=== PATIENT | male | born 1970 | race Caucasian/White ===

== ENCOUNTER 2019-11-01 19:39 | Emergency (ER) | payer OTHER ==
--- NOTE | 2019-11-01 20:44 | RAD REPORT ---
EXAM DESCRIPTION: Yris Single View11/01/2019 8:34 pm CLINICAL HISTORY: Cough COMPARISON: 2016 FINDINGS: The lungs appear clear of acute infiltrate. The heart is normal size IMPRESSION: No acute abnormalities displayed
[2019-11-01] MEDS ORDERED: AZITHROMYCIN 250 MG TAB ONE (21:21)
[2019-11-01] MEDS ORDERED: dexAMETHasone 10 MG/ML VIAL ONE (21:21)
[2019-11-01] MEDS ORDERED: ALBUTEROL 2.5 MG/3 ML NEB SOL ONE ×2 (21:24→22:46)
[2019-11-01] MEDS ORDERED: IPRATROPIUM BROM 0.5MG/2.5ML ONE (21:24)
--- NOTE | 2019-11-01 22:16 | ER ---
Nurse's Notes [facility] Name: Carlos Logan Age: 49 yrs Sex: Male : 1970 Arrival Date: 11/01/2019 Time: 19:48 Bed 23 Private MD: Romero Hernandez B Diagnosis: Acute suppurative otitis media;Acute bronchitis;Impacted cerumen, right ear Presentation: 10/31 19:50 Chief complaint: Patient states: Sinus problems since 2018. Allergies and sinus ca1 infections several times. 2 days ago, nasal congestion and drainage started. Denies fever. Reports cough, productive. Coronavirus screen: Patient reports a cough. Patient reports shortness of breath or difficulty breathing. Patient denies measured and/or subjective temperature greater than 100.4F prior to today's visit. Patient denies travel on a cruise ship or to a country the [facility] currently lists as an affected area. Patient denies contact with known and/or suspected case of COVID-19. Patient was placed back in the lobby due to no available rooms at this time. Patient was instructed to always wear their mask and to isolate themselves as much as possible from others in the lobby. Ebola Screen: Patient negative for fever greater than or equal to 101.5 degrees Fahrenheit, and additional compatible Ebola Virus Disease symptoms Patient denies exposure to infectious person. Patient denies travel to an Ebola-affected area in the 21 days before illness onset. No symptoms or risks identified at this time. Initial Sepsis Screen: Does the patient meet any 2 criteria? No. Patient's initial sepsis screen is negative. Does the patient have a suspected source of infection? No. Patient's initial sepsis screen is negative. Risk Assessment: Do you want to hurt yourself or someone else? Patient reports no desire to harm self or others. Onset of symptoms was November 01, 2019. 19:50 Method Of Arrival: Ambulatory ca1 19:50 Acuity: PAULY 4 ca1 Triage Assessment: 21:06 General: Appears in no apparent distress. uncomfortable. Pain: Denies pain. ks7 Historical: - Allergies: 19:56 No Known Allergies; ca1 - Home Meds: 19:56 Singulair 10 mg Oral tab 1 tab once daily [Active]; ca1 - PMHx: 19:56 Hypothyroidism; ca1 - PSHx: 19:56 None; ca1 - Immunization history:: Adult Immunizations up to date. - Social history:: Smoking status: Patient reports the use of cigarette tobacco products, smokes one pack cigarettes per day. Screenin:07 Abuse screen: Denies threats or abuse. Nutritional screening: No deficits noted. ks7 Tuberculosis screening: No symptoms or risk factors identified. Fall Risk None identified. Assessment: 21:07 General: Reports pt w/ hx of recurrent URI since Jan. comes in today c/o sinus ks7 congestion and bilateral ear ache x 2-3 days. pt also c/o sob, audible exp wheezes. Respiratory: Breath sounds with wheezes bilaterally. in right upper lobe, left upper lobe, right middle lobe, left lower lobe and right lower lobe. 21:50 Reassessment: Patient states symptoms have improved. pt states he feels like he can ks7 breathe a little better after duo neb tx. improvement in expiratory wheeze.. 22:39 Reassessment: Patient states feeling better. pt receiving 1 more albuterol tx then dc ks7 to home. Vital Signs: 19:50 BP 127 / 95; Pulse 105; Resp 18 S; Temp 97.2(TE); Pulse Ox 99% on R/A; Weight 98.43 kg ca1 (R); Height 6 ft. 0 in. (182.88 cm) (R); 21:06 BP 138 / 83; Pulse 89; Resp 18; Pulse Ox 95% on R/A; Pain 0/10; ks7 21:50 BP 118 / 81; Pulse 89; Resp 18; Pulse Ox 95% on R/A; Pain 0/10; ks7 22:32 BP 128 / 93; Pulse 87; Resp 18; Temp 97.9(O); Pulse Ox 95% on R/A; Pain 0/10; ks7 22:41 Pulse Ox 95% on R/A; Pain 0/10; ks7 22:41 Pulse Ox 95% on R/A; Pain 0/10; ks7 22:49 Pulse Ox 95% on R/A; Pain 0/10; ks7 19:50 Body Mass Index 29.43 (98.43 kg, 182.88 cm) ca1 ED Course: 19:48 Patient arrived in ED. do 19:48 Romero Hernandez MD is Private Physician. do 19:55 Triage completed. ca1 19:56 Arm band placed on right wrist. ca1 20:34 XRAY Chest (1 view) In Process Unspecified. EDMS 20:44 Lisa Sinha, ASHLEIGH is Primary Nurse. ks7 20:46 Sriram Wilson PA is PHCP. jr8 20:46 Dangelo Falk MD is Attending Physician. jr8 21:07 Patient has correct armband on for positive identification. Placed in gown. Bed in low ks7 position. Call light in reach. Side rails up X2. 21:07 No provider procedures requiring assistance completed. Patient did not have IV access ks7 during this emergency room visit. 21:39 No apparent distress. pt on 1x duoneb treatment. ks7 22:15 Romero Hernandez MD is Referral Physician. jr8 Administered Medications: 21:15 Drug: Zithromax 500 mg Route: PO; ks7 21:17 Drug: Decadron 10 mg Route: IM; Site: right deltoid; ks7 22:41 Follow up: Pulse Ox 95% RA; Pain 0/10 Adult ks7 21:25 Drug: DuoNeb (3:1) (2.5 mg - 0.5 mg) 3 ml Route: Nebulizer; ks7 22:41 Follow up: Pulse Ox 95% RA; Pain 0/10 Adult ks7 22:36 Drug: Albuterol 2.5 mg Route: Inhalation; ks7 22:49 Follow up: Pulse Ox 95% RA; Pain 0/10 Adult ks7 Outcome: 22:15 Discharge ordered by . jr8 22:39 Discharged to home ambulatory. ks7 22:39 Condition: stable 22:39 Discharge instructions given to patient, Instructed on discharge instructions, medication usage, Demonstrated understanding of instructions, medications, Prescriptions given X 3. 22:49 Patient left the ED. ks7 Signatures: Dispatcher [employer] EDMS Sriram Wilson PA PA jr8 Lisa Gray Cheryl, RN RN ca1 Lisa Sinha, ASHLEIGH RN ks7
--- NOTE | 2019-11-01 22:16 | EDPHYS ---
Physician Documentation [facility] Name: Carlos Logan Age: 49 yrs Sex: Male : 1970 Arrival Date: 11/01/2019 Time: 19:48 Bed 23 Private MD: Romero Hernandez B ED Physician Dangelo Falk HPI: 10/31 21:33 This 49 yrs old Male presents to ER via Ambulatory with complaints of Sinus jr8 Congestion. 21:33 The patient or guardian reports cough, that is intermittent, described as mild, sinus jr8 congestion, and wheezing . Onset: The symptoms/episode began/occurred gradually, 1 week(s) ago. Severity of symptoms: At their worst the symptoms were moderate, in the emergency department the symptoms are unchanged. Modifying factors: The symptoms are alleviated by nothing, the symptoms are aggravated by exertion. Associated signs and symptoms: The patient has no apparent associated signs or symptoms. The patient has experienced similar episodes in the past, a few times. The patient has not recently seen a physician. Stated that he has been getting bouts of sinus infections. This time has cough and wheezing . Historical: - Allergies: 19:56 No Known Allergies; ca1 - Home Meds: 19:56 Singulair 10 mg Oral tab 1 tab once daily [Active]; ca1 - PMHx: 19:56 Hypothyroidism; ca1 - PSHx: 19:56 None; ca1 - Immunization history:: Adult Immunizations up to date. - Social history:: Smoking status: Patient reports the use of cigarette tobacco products, smokes one pack cigarettes per day. ROS: 21:33 Eyes: Negative for injury, pain, redness, and discharge, Neck: Negative for injury, jr8 pain, and swelling, Cardiovascular: Negative for chest pain, palpitations, and edema, Abdomen/GI: Negative for abdominal pain, nausea, vomiting, diarrhea, and constipation, Back: Negative for injury and pain, MS/Extremity: Negative for injury and deformity, Skin: Negative for injury, rash, and discoloration. 21:33 ENT: Positive for nasal discharge, rhinorrhea, sinus congestion, sinus pain. 21:33 Respiratory: Positive for cough, shortness of breath, wheezing. 21:33 Neuro: Positive for headache. Exam: 21:33 Eyes: Pupils equal round and reactive to light, extra-ocular motions intact. Lids and jr8 lashes normal. Conjunctiva and sclera are non-icteric and not injected. Cornea within normal limits. Periorbital areas with no swelling, redness, or edema. ENT: Nares patent. No nasal discharge, no septal abnormalities noted. Tympanic membranes are normal and external auditory canals are clear. Oropharynx with no redness, swelling, or masses, exudates, or evidence of obstruction, uvula midline. Mucous membranes moist. Neck: Trachea midline, no thyromegaly or masses palpated, and no cervical lymphadenopathy. Supple, full range of motion without nuchal rigidity, or vertebral point tenderness. No Meningismus. Cardiovascular: Regular rate and rhythm with a normal S1 and S2. No gallops, murmurs, or rubs. Normal PMI, no JVD. No pulse deficits. Abdomen/GI: Soft, non-tender, with normal bowel sounds. No distension or tympany. No guarding or rebound. No evidence of tenderness throughout. Back: No spinal tenderness. No costovertebral tenderness. Full range of motion. Skin: Warm, dry with normal turgor. Normal color with no rashes, no lesions, and no evidence of cellulitis. MS/ Extremity: Pulses equal, no cyanosis. Neurovascular intact. Full, normal range of motion. Neuro: Awake and alert, GCS 15, oriented to person, place, time, and situation. Cranial nerves II-XII grossly intact. Motor strength 5/5 in all extremities. Sensory grossly intact. Cerebellar exam normal. Normal gait. 21:33 Head/face: Sinus tenderness, that is mild, is located over the right frontal sinus, left frontal sinus, right ethmoid sinus, left ethmoid sinus, right maxillary sinus and left maxillary sinus. 21:33 Respiratory: the patient does not display signs of respiratory distress, Respirations: normal, symetrical, no use of accessory muscles, no grunting, no evidence of nasal flaring, no prolonged exhalations, no pursed lip breathing, no retractions, no shallow respirations, no splinting, no tachypnea, Breath sounds: wheezing: expiratory that is moderate, is heard diffusely. Vital Signs: 19:50 BP 127 / 95; Pulse 105; Resp 18 S; Temp 97.2(TE); Pulse Ox 99% on R/A; Weight 98.43 kg ca1 (R); Height 6 ft. 0 in. (182.88 cm) (R); 21:06 BP 138 / 83; Pulse 89; Resp 18; Pulse Ox 95% on R/A; Pain 0/10; ks7 21:50 BP 118 / 81; Pulse 89; Resp 18; Pulse Ox 95% on R/A; Pain 0/10; ks7 22:32 BP 128 / 93; Pulse 87; Resp 18; Temp 97.9(O); Pulse Ox 95% on R/A; Pain 0/10; ks7 22:41 Pulse Ox 95% on R/A; Pain 0/10; ks7 22:41 Pulse Ox 95% on R/A; Pain 0/10; ks7 22:49 Pulse Ox 95% on R/A; Pain 0/10; ks7 19:50 Body Mass Index 29.43 (98.43 kg, 182.88 cm) ca1 MDM: 20:46 Patient medically screened. jr8 22:14 Data reviewed: vital signs, nurses notes, radiologic studies, plain films, and as a jr8 result, I will discharge patient. Data interpreted: Pulse oximetry: on room air is 95 %. Interpretation: normal. Counseling: I had a detailed discussion with the patient and/or guardian regarding: the historical points, exam findings, and any diagnostic results supporting the discharge/admit diagnosis, radiology results, the need for outpatient follow up, a family practitioner, to return to the emergency department if symptoms worsen or persist or if there are any questions or concerns that arise at home. Response to treatment: the patient's symptoms have markedly improved after treatment. 10/31 19:58 Order name: XRAY Chest (1 view); Complete Time: 20:46 ca1 Administered Medications: 21:15 Drug: Zithromax 500 mg Route: PO; ks7 21:17 Drug: Decadron 10 mg Route: IM; Site: right deltoid; ks7 22:41 Follow up: Pulse Ox 95% RA; Pain 0/10 Adult ks7 21:25 Drug: DuoNeb (3:1) (2.5 mg - 0.5 mg) 3 ml Route: Nebulizer; ks7 22:41 Follow up: Pulse Ox 95% RA; Pain 0/10 Adult ks7 22:36 Drug: Albuterol 2.5 mg Route: Inhalation; ks7 22:49 Follow up: Pulse Ox 95% RA; Pain 0/10 Adult ks7 Disposition: 11/01 06:12 Co-signature as Attending Physician, Dangelo Falk MD I agree with the assessment and madhu plan of care. Disposition: 11/01/19 22:15 Discharged to Home. Impression: Acute suppurative otitis media, Acute bronchitis, Impacted cerumen, right ear. - Condition is Stable. - Discharge Instructions: Acute Bronchitis, Adult, Earwax Buildup, Adult, Otitis Media, Adult. - Prescriptions for Medrol (Yoel) 4 mg Oral Tablets, Dose Pack - take 1 tablet by ORAL route as directed - follow package instructions; 1 packet. Albuterol Sulfate 90 mcg/actuation - inhale 1-2 puff by INHALATION route every 4-6 hours; 1 Inhaler. Zithromax 500 mg Oral Tablet - take 1 tablet by ORAL route once daily for 5 days; 5 tablet. - Medication Reconciliation Form, Thank You Letter, Antibiotic Education, Prescription Opioid Use form. - Follow up: Romero Hernandez MD; When: 5 - 6 days; Reason: Recheck today's complaints, Continuance of care, Re-evaluation by your physician. - Problem is new. - Symptoms have improved. Signatures: Dispatcher [employer] EDDangelo Acuña MD MD cha Roszak, Josh, PA PA jr8 Nicole Sandoval RN RN ca1 Songcuan, Kathleen, RN RN ks7 Corrections: (The following items were deleted from the chart) 10/31 22:16 22:15 11/01/2019 22:15 Discharged to Home. Impression: Acute suppurative otitis media; jr8 Acute bronchitis. Condition is Stable. Forms are Medication Reconciliation Form, Thank You Letter, Antibiotic Education, Prescription Opioid Use. Follow up: Romero Hernandez; When: 5 - 6 days; Reason: Recheck today's complaints, Continuance of care, Re-evaluation by your physician. Problem is new. Symptoms have improved. jr8 22:49 22:16 11/01/2019 22:15 Discharged to Home. Impression: Acute suppurative otitis media; ks7 Acute bronchitis; Impacted cerumen, right ear. Condition is Stable. Forms are Medication Reconciliation Form, Thank You Letter, Antibiotic Education, Prescription Opioid Use. Follow up: Romero Hernandez; When: 5 - 6 days; Reason: Recheck today's complaints, Continuance of care, Re-evaluation by your physician. Problem is new. Symptoms have improved. jr8
[2019-11-01 23:41] VITALS: O2SAT 95
[2019-11-01 23:43] VITALS: BP 128/93; TEMP 97.9
== END 2019-11-01 22:49 | disposition home or self-care (01) ==
LOC: ER 19:39
DX: J20.9 Acute bronchitis, unspecified (principal); H66.001 Acute suppurative otitis media without spontaneous rupture of ear drum, right ear; H61.21 Impacted cerumen, right ear; F17.210 Nicotine dependence, cigarettes, uncomplicated; E03.9 Hypothyroidism, unspecified
CPT/HCPCS: 71045; 96372; 99284; J1100

== ENCOUNTER 2020-07-02 19:12 | Observation (INO) | payer OTHER ==
--- OUTSIDE RECORDS SUMMARY | 2020-07-02 19:14 | XMS REPORT | Continuity of Care Document ---
:1970 Author Organization [facility] t Address [address] [place] [address] Care Team Providers Name Role Phone Lab, Fam Pob I Attending Clinician Unavailable Doctor Unassigned, Name Attending Clinician Unavailable Problems This patient has no known problems. Allergies, Adverse Reactions, Alerts This patient has no known allergies or adverse reactions. Medications This patient has no known medications. Procedures This patient has no known procedures. Encounters Start End Encounter Admission Attending Care Care Encounter Source Date/Time Date/Time Type Type Clinicians Facility Department ID 2020-04-24 2020-04-24 Laboratory Lab, [facility] [id number] 09:17:47 09:37:47 Only Fam Pob I Health [id number] [facility] [id number] Jus [id number] [address] 2020-04-24 2020-04-24 Letter Doctor GREGORIA [id number] 00:00:00 00:00:00 (Out) UnassignedJANE [id number] [facility] [id number] Results This patient has no known results.
[2020-07-02 20:07] LABS: Basophils % 1.4 % (0-1.3); Hematocrit 40.9 % (39.6-49.0); Lymphocytes % 23.5 % (15.3-44.8); MPV 9.2 fL (7.6-11.3); RBC Red Blood Cell Count 4.36 M/uL (4.33-5.43)
[2020-07-02 20:17] LABS: Protime INR 0.98
[2020-07-02] MEDS ORDERED: ASPIRIN 81 MG CHEWABLE TABLET ONE (20:48)
[2020-07-02] MEDS ORDERED: ONDANSETRON 4 MG/2 ML VIAL ONE (20:49)
[2020-07-02] MEDS ORDERED: FAMOTIDINE 20 MG/2 ML VIAL IV ONE (20:49)
[2020-07-02 21:12] LABS: ALT/SGPT 32 U/L (12-78); AST/SGOT 18 U/L (15-37); Alkaline Phosphatase ND U/L (45-117); BUN Blood Urea Nitrogen 14 mg/dL (7-18); Bicarbonate 27 mmol/L (21-32); Bilirubin Direct < 0.1 mg/dL (0-0.2); Bilirubin Total 0.2 mg/dL (0.2-1.0); Glucose Level 126 mg/dL (74-106); Lipase 130 U/L (73-393); Magnesium 2.3 mg/dL (1.8-2.4); NT PRO-BNP 26 pg/mL (<125); Potassium 3.6 mmol/L (3.5-5.1); Protein, Total 8.1 g/dL (6.4-8.2); Sodium Level 142 mmol/L (136-145); Troponin (Emerg Dept Use Only) < 0.02 ng/mL (0.0-0.045)
--- NOTE | 2020-07-02 21:29 | RAD REPORT ---
EXAM DESCRIPTION: RAD - Chest Single View - 07/02/2020 8:45 pm CLINICAL HISTORY: CHEST PAIN COMPARISON: Portable October 2019 TECHNIQUE: AP portable chest image was obtained 07/02/2020 8:45 pm . FINDINGS: Lungs are clear. Interstitial pattern matches comparison. Heart and vasculature are normal . No measurable pleural effusion and no pneumothorax. No acute bony abnormality seen. No acute aortic findings suspected. IMPRESSION: No acute cardiopulmonary process. No significant change from comparison study.
[2020-07-02] MEDS ORDERED: NA CHLORIDE 0.9% 1,000 ML ONE (22:28)
[2020-07-02] MEDS ORDERED: NITROGLYCERIN 0.4 MG/TAB SL ONE (22:30)
--- NOTE | 2020-07-02 22:38 | ER ---
Nurse's Notes [facility] Name: Carlos Logan Age: 49 yrs Sex: Male : 1970 Arrival Date: 07/02/2020 Time: 19:14 Bed 20 Private MD: Diagnosis: Chest pain, unspecified Presentation: 07/02 19:23 Chief complaint: Patient states: Abdominal pain with some nausea for 1 week. No fever. ll1 Chest pressure off/on for 3 days, worse today. + SOB and dizziness. Coronavirus screen: Client denies travel out of the [place] in the last 14 days. congestion, fatigue, headache, nausea, runny nose, shaking with chills, Client presents with at least one sign or symptom that may indicate coronavirus-19. Standard/surgical mask placed on the client. Ebola Screen: Patient denies travel to an Ebola-affected area in the 21 days before illness onset. Initial Sepsis Screen: Does the patient meet any 2 criteria? HR > 90 bpm. No. Patient's initial sepsis screen is negative. Does the patient have a suspected source of infection? Yes: Acute abdominal pain. Risk Assessment: Do you want to hurt yourself or someone else? Patient reports no desire to harm self or others. Onset of symptoms was June 25, 2020. 19:23 Method Of Arrival: Ambulatory ll1 19:23 Acuity: PAULY 3 ll1 Historical: - Allergies: 19:27 No Known Allergies; ll1 - PMHx: 19:27 Hypothyroidism; ll1 - PSHx: 19:27 None; ll1 - Immunization history:: Flu vaccine is not up to date. - Social history:: Smoking status: Patient reports the use of cigarette tobacco products, smokes one pack cigarettes per day. Screenin:14 Abuse screen: Denies threats or abuse. Denies injuries from another. Nutritional mg2 screening: No deficits noted. Tuberculosis screening: No symptoms or risk factors identified. Fall Risk IV access (20 points). Assessment: 21:00 General: Appears in no apparent distress. comfortable, Behavior is calm, cooperative. mg2 Pain: Complains of pain in chest and abdomen. Neuro: Level of Consciousness is awake, alert, obeys commands, Oriented to person, place, time, situation. Cardiovascular: Capillary refill < 3 seconds Patient's skin is warm and dry. Respiratory: Airway is patent Respiratory effort is even, unlabored, Respiratory pattern is regular, symmetrical. GI: Bowel sounds present X 4 quads. Abd is soft and non tender Reports lower abdominal pain, upper abdominal pain. : No signs and/or symptoms were reported regarding the genitourinary system. EENT: No signs and/or symptoms were reported regarding the EENT system. Derm: Skin is intact, is healthy with good turgor, Skin is pink, warm \T\ dry. normal. Musculoskeletal: Circulation, motion, and sensation intact. Capillary refill < 3 seconds. 22:08 Reassessment: Patient appears in no apparent distress at this time. Patient and/or mg2 family updated on plan of care and expected duration. Pain level reassessed. Patient is alert, oriented x 3, equal unlabored respirations, skin warm/dry/pink. 23:08 Reassessment: Patient appears in no apparent distress at this time. Patient and/or mg2 family updated on plan of care and expected duration. Pain level reassessed. Patient is alert, oriented x 3, equal unlabored respirations, skin warm/dry/pink. 07/03 00:40 Reassessment: Patient appears in no apparent distress at this time. Patient and/or mg2 family updated on plan of care and expected duration. Pain level reassessed. Patient is alert, oriented x 3, equal unlabored respirations, skin warm/dry/pink. Vital Signs: 07/02 19:23 BP 141 / 89; Pulse 111; Resp 17; Temp 98.5; Pulse Ox 99% ; Weight 99.79 kg; Height 6 ll1 ft. 0 in. (182.88 cm); Pain 3/10; 22:07 BP 142 / 92; Pulse 92; Resp 17; Pulse Ox 98% on R/A; mg2 23:07 BP 117 / 79; Pulse 92; Resp 18; Pulse Ox 97% on R/A; mg2 07/03 00:40 BP 123 / 93; Pulse 83; Resp 18; Temp 98.4(TE); Pulse Ox 98% on R/A; mg2 07/02 19:23 Body Mass Index 29.84 (99.79 kg, 182.88 cm) ll1 ED Course: 07/02 19:14 Patient arrived in ED. cl3 19:25 Triage completed. ll1 19:27 Arm band placed on. ll1 19:38 Markwardt, Monet, RN is Primary Nurse. dm5 19:56 Dangelo Martines PA is PHCP. cp 19:56 Dangelo Falk MD is Attending Physician. cp 19:57 Basic Metabolic Panel Sent. dm5 20:29 Lipase Sent. dm5 20:45 XRAY Chest (1 view) In Process Unspecified. EDMS 21:14 Patient has correct armband on for positive identification. mg2 21:14 No provider procedures requiring assistance completed. mg2 22:37 Merlin Mckinney MD is Hospitalizing Provider. cp Administered Medications: 20:33 Drug: Zofran (Ondansetron) 4 mg Route: IVP; Site: right antecubital; dm5 21:12 Follow up: Response: No adverse reaction mg2 20:33 Drug: Aspirin Chewable Tablet 324 mg Route: PO; dm5 21:12 Follow up: Response: No adverse reaction mg2 20:35 Drug: Pepcid 20 mg Route: IVP; Site: right antecubital; dm5 21:12 Follow up: Response: No adverse reaction mg2 22:17 Drug: NS 0.9% 1000 ml Route: IV; Rate: 1 bolus; Site: right antecubital; mg2 0318 00:40 Follow up: Response: No adverse reaction; IV Status: Completed infusion; IV Intake: mg2 1000ml 03 22:19 Drug: Nitroglycerin 0.4 mg Route: Sublingual; mg2 22:52 Follow up: Response: No adverse reaction mg2 22:52 Drug: Nicoderm CQ 21 mg/24 hr 1 patches {Note: shoulder.} Route: Transdermal; Site: mg2 affected area; 07/03 00:41 Follow up: Response: No adverse reaction mg2 07/02 23:27 Not Given (Physician Discretion): Metoprolol TARTRATE (Lopressor) 50 mg PO once mg2 Intake: 07/03 00:40 IV: 1000ml; Total: 1000ml. mg2 Outcome: 07/02 22:37 Decision to Hospitalize by Provider. cp 07/03 00:51 Patient left the ED. mg2 Signatures: Dispatcher [employer] EDMS Monet Palma, ASHLEIGH RN dm5 Dangelo Martines PA PA cp Henry Pike RN RN mg2 Ijeoma Capps cl3 Marlon Capps RN RN ll1
--- NOTE | 2020-07-02 22:38 | EDPHYS ---
Physician Documentation [facility] Name: Carlos Logan Age: 49 yrs Sex: Male : 1970 Arrival Date: 07/02/2020 Time: 19:14 Bed 20 Private MD: DANIELLE Physician Dangelo Falk HPI: 07/02 19:45 This 49 yrs old Male presents to ER via Ambulatory with complaints of cp Abdominal Pain, Chest Tightness. 19:45 The patient or guardian reports chest pain that is located primarily in the substernal cp area. 19:45 Onset: 3 day(s) ago. cp 19:45 The patient presents with abdominal pain in the upper abdomen. The pain does not cp radiate. Associated signs and symptoms: Pertinent positives: nausea, Pertinent negatives: diarrhea, palpitations, vomiting. The chest pain is described as tightness. Historical: - Allergies: 19:27 No Known Allergies; ll1 - PMHx: 19:27 Hypothyroidism; ll1 - PSHx: 19:27 None; ll1 - Immunization history:: Flu vaccine is not up to date. - Social history:: Smoking status: Patient reports the use of cigarette tobacco products, smokes one pack cigarettes per day. ROS: 19:50 Constitutional: Negative for body aches, chills, fever, poor PO intake. cp 19:50 Eyes: Negative for injury, pain, redness, and discharge. cp 19:50 Cardiovascular: Positive for chest pain, palpitations, Negative for edema. 19:50 Respiratory: Negative for cough, shortness of breath, wheezing. 19:50 Abdomen/GI: Positive for abdominal pain, Negative for nausea, vomiting, and diarrhea, black/tarry stool, rectal bleeding. 19:50 Back: Negative for radiated pain. 19:50 : Negative for urinary symptoms. cp 19:50 Neuro: Negative for altered mental status, dizziness, headache, syncope, weakness. cp 19:50 All other systems are negative. Exam: 19:55 Constitutional: The patient appears in no acute distress, alert, awake, cp non-diaphoretic, non-toxic, well developed, well nourished. 19:55 Head/Face: Normocephalic, atraumatic. cp 19:55 Eyes: Periorbital structures: appear normal, Conjunctiva: normal, no exudate, no injection, Sclera: no appreciated abnormality, Lids and lashes: appear normal, bilaterally. 19:55 ENT: External ear(s): are unremarkable, Nose: is normal, Mouth: Lips: moist, Oral mucosa: moist, Posterior pharynx: is normal, airway is patent. 19:55 Neck: ROM/movement: is normal, is supple, without pain, no range of motions limitations. 19:55 Chest/axilla: Inspection: normal, Palpation: is normal, no crepitus, no tenderness. 19:55 Cardiovascular: Rate: tachycardic, Rhythm: regular, Heart sounds: murmur, not appreciated, Edema: is not appreciated, JVD: is not appreciated. 19:55 Respiratory: the patient does not display signs of respiratory distress, Respirations: normal, no use of accessory muscles, no retractions, labored breathing, is not present, Breath sounds: are clear throughout, no decreased breath sounds, no stridor, no wheezing. 19:55 Abdomen/GI: Inspection: abdomen appears normal, Bowel sounds: active, all quadrants, Palpation: abdomen is soft and non-tender, in all quadrants. 19:55 Back: ROM is normal. 19:55 Neuro: Orientation: to person, place \T\ time. Mentation: is normal, Cerebellar function: is grossly normal, Motor: moves all fours, strength is normal, Sensation: is normal. Vital Signs: 19:23 BP 141 / 89; Pulse 111; Resp 17; Temp 98.5; Pulse Ox 99% ; Weight 99.79 kg; Height 6 ll1 ft. 0 in. (182.88 cm); Pain 3/10; 22:07 BP 142 / 92; Pulse 92; Resp 17; Pulse Ox 98% on R/A; mg2 23:07 BP 117 / 79; Pulse 92; Resp 18; Pulse Ox 97% on R/A; mg2 07/03 00:40 BP 123 / 93; Pulse 83; Resp 18; Temp 98.4(TE); Pulse Ox 98% on R/A; mg2 07/02 19:23 Body Mass Index 29.84 (99.79 kg, 182.88 cm) ll1 MDM: 07/02 20:12 Patient medically screened. cp 22:00 Data reviewed: vital signs, nurses notes, lab test result(s), radiologic studies, plain cp films. 22:00 The patient was given aspirin in the Emergency Department. Test interpretation: by ED cp physician or midlevel provider: plain radiologic studies. 07/02 19:39 Order name: Basic Metabolic Panel [facility] 07/02 19:39 Order name: CBC with Diff; Complete Time: 21:50 dm5 07/02 21:50 Interpretation: Normal except: BASO% 1.4. cp 07/02 19:39 Order name: LFT's; Complete Time: 21:50 5 07/02 19:39 Order name: Magnesium; Complete Time: 21:50 dm5 07/02 19:39 Order name: NT PRO-BNP; Complete Time: 21:50 dm5 07/02 19:39 Order name: PT-INR [facility] 07/02 19:39 Order name: Troponin (emerg Dept Use Only); Complete Time: 21:50 dm5 07/02 19:39 Order name: Basic Metabolic Panel; Complete Time: 21:50 EDMS 07/02 20:11 Order name: Lipase cp 07/02 20:18 Order name: Lipase; Complete Time: 21:50 EDMS 07/02 22:34 Order name: DD la1 07/02 19:39 Order name: XRAY Chest (1 view); Complete Time: 21:50 dm5 07/02 19:39 Order name: EKG; Complete Time: 19:40 dm5 07/02 19:39 Order name: Cardiac monitoring; Complete Time: 19:59 dm5 07/02 19:39 Order name: EKG - Nurse/Tech; Complete Time: 19:59 dm5 07/02 19:39 Order name: IV Saline Lock; Complete Time: 19:59 dm5 07/02 19:39 Order name: Labs collected and sent; Complete Time: 19:59 dm5 07/02 19:39 Order name: O2 Per Protocol; Complete Time: 19:57 dm5 07/02 22:42 Order name: D-Dimer; Complete Time: 23:33 EDMS 07/03 00:16 Order name: SARS-COV-2 RT PCR [facility] 07/02 19:39 Order name: O2 Sat Monitoring; Complete Time: 19:57 dm5 Administered Medications: 20:33 Drug: Zofran (Ondansetron) 4 mg Route: IVP; Site: right antecubital; dm5 21:12 Follow up: Response: No adverse reaction mg2 20:33 Drug: Aspirin Chewable Tablet 324 mg Route: PO; dm5 21:12 Follow up: Response: No adverse reaction mg2 20:35 Drug: Pepcid 20 mg Route: IVP; Site: right antecubital; dm5 21:12 Follow up: Response: No adverse reaction mg2 22:17 Drug: NS 0.9% 1000 ml Route: IV; Rate: 1 bolus; Site: right antecubital; mg2 07/03 00:40 Follow up: Response: No adverse reaction; IV Status: Completed infusion; IV Intake: mg2 1000ml 07/02 22:19 Drug: Nitroglycerin 0.4 mg Route: Sublingual; mg2 22:52 Follow up: Response: No adverse reaction mg2 22:52 Drug: Nicoderm CQ 21 mg/24 hr 1 patches {Note: shoulder.} Route: Transdermal; Site: mg2 affected area; 07/03 00:41 Follow up: Response: No adverse reaction mg2 07/02 23:27 Not Given (Physician Discretion): Metoprolol TARTRATE (Lopressor) 50 mg PO once mg2 Disposition: 07/03 06:50 Co-signature as Attending Physician, Dangelo Falk MD I agree with the assessment and madhu plan of care. Disposition: 07/02/20 22:37 Hospitalization ordered by Merlin Mckinney for Observation. Preliminary diagnosis is Chest pain, unspecified. - Bed requested for Telemetry/MedSurg (observation). - Status is Observation. mg2 - Condition is Stable. - Problem is new. - Symptoms have improved. Signatures: Dispatcher [employer] [facility] Monet Palma, RN RN dm5 Dangelo Falk MD MD cha Attema, Lee, READING SPECIALIST-C READING SPECIALIST-Cla1 Dangelo Martines PA PA cp [place]ose, Michele, RN RN mg2 Marlon Capps RN RN ll1 Corrections: (The following items were deleted from the chart) 07/02 20:18 20:12 Lipase ordered. ED[facility] EDMS 22:42 22:35 D-Dimer ordered. [facility] EDMS 22:46 22:19 CORONAVIRUS+MR.LAB.BRZ ordered. [facility] EDMS 07/03 00:31 07/02 22:37 Hospitalization Ordered by Merlin Mckinney MD for Observation. Preliminary dm5 diagnosis is Chest pain, unspecified. Bed requested for Telemetry/MedSurg (observation). Status is Observation. Condition is Stable. Problem is new. Symptoms have improved. cp 07/03 00:51 00:31 07/02/2020 22:37 Hospitalization Ordered by Merlin Mckinney MD for Observation. mg2 Preliminary diagnosis is Chest pain, unspecified. Bed requested for Telemetry/MedSurg (observation). Status is Observation. Condition is Stable. Problem is new. Symptoms have improved. dm5
[2020-07-02] MEDS ORDERED: NICOTINE 21 MG/PAT TD ONE (23:11)
--- NOTE | 2020-07-02 23:37 | P.HP ---
Certification for Inpatient Patient admitted to: Observation With expected LOS: <2 Midnights Patient will require the following post-hospital care: None Practitioner: I am a practitioner with admitting privileges, knowledge of patient current condition, hospital course, and medical plan of care. Services: Services provided to patient in accordance with Admission requirements found in Title 42 Section 412.3 of the Code of Federal Regulations <Lorenzo Garcia - Last Filed: 07/02/20 23:35> Patient History Date of Service: 07/02/20 Primary Care Provider: Dr. Hernandez Reason for admission: Chest pain History of Present Illness: 49-year-old male with history of hypothyroidism presents emergency department for chest pain. Patient reports he has had intermittent chest tightness over the course of the last 3 days worse today associated with some dizziness and shortness of breath. Pain a case a radiates to left shoulder, neck and has tingling in the right arm. Patient also reports some anxiety related to the pain. Workup in the emergency department unremarkable, chest x- ray unremarkable. Initial troponin negative D-dimer negative EKG without acute changes. Patient with family history of heart disease, smokes heavily, ED provider wishes to admit patient for chest pain rule out. 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 - Family History Father -: Heart disease - Social History Smoking Status: Current every day smoker Counseled patient to stop smoking for: less than 10 minutes Smoking therapy provided: Yes Alcohol use: No CD- Drugs: No Caffeine use: Yes Place of Residence: Home <Lorenzo Garcia - Last Filed: 07/02/20 23:35> Date of Service: 07/03/20 <Merlin Mckinney - Last Filed: 07/03/20 14:49> Review of Systems 10-point ROS is otherwise unremarkable Respiratory: Shortness of Breath, SOB with Excertion Cardiovascular: Chest Pain, Light Headedness, As per HPI <Lorenzo Garcia - Last Filed: 07/02/20 23:35> Physical Examination - Physical Exam General: Alert, In no apparent distress HEENT: Atraumatic, PERRLA, Mucous membr. moist/pink Neck: Supple, 2+ carotid pulse no bruit, No LAD Respiratory: Clear to auscultation bilaterally, Normal air movement Cardiovascular: Regular rate/rhythm, Normal S1 S2 Gastrointestinal: Normal bowel sounds, No tenderness Musculoskeletal: No tenderness Integumentary: No rashes Neurological: Normal speech, Normal strength at 5/5 x4 extr, Normal tone, Normal affect - Studies Laboratory Data (last 24 hrs) 07/02/20 20:11: Lipase Cancelled 07/02/20 19:50: PT 11.3, INR 0.98 07/02/20 19:50: WBC 8.60, Hgb 14.2, Hct 40.9, Plt Count 216 07/02/20 19:50: Sodium 142, Potassium 3.6, BUN 14, Creatinine 1.14, Glucose 126 H, Magnesium 2.3, Total Bilirubin 0.2, AST 18, ALT 32, Alkaline Phosphatase ND, Lipase 130 <Lorenzo Garcia - Last Filed: 07/02/20 23:35> - Studies Laboratory Data (last 24 hrs) 07/02/20 20:11: Lipase Cancelled 07/02/20 19:50: PT 11.3, INR 0.98 07/02/20 19:50: WBC 8.60, Hgb 14.2, Hct 40.9, Plt Count 216 07/02/20 19:50: Sodium 142, Potassium 3.6, BUN 14, Creatinine 1.14, Glucose 126 H, Magnesium 2.3, Total Bilirubin 0.2, AST 18, ALT 32, Alkaline Phosphatase ND, Lipase 130 <Merlin Mckinney - Last Filed: 07/03/20 14:49> Assessment and Plan - Plan Assessment Chest pain rule out ACS Hypothyroidism Tobacco abuse Plan Chest pain rule out ACS: Trend troponins, monitor on telemetry, cardiology consult. Continue daily aspirin, statin, beta-gisela therapy. DVT prophylaxis Lovenox 40 mg subcutaneous once daily. Discussed need for tobacco cessation with patient. Appreciate further input from cardiology. Hypothyroidism: Continue home medication, check thyroid panel with morning labs. Tobacco abuse: Discussed need for tobacco cessation, provide patient with nicotine patch during this admission. Discharge Plan: Home Plan to discharge in: 24 Hours - Advance Directives Does patient have a Living Will: No Does patient have a Durable POA for Healthcare: No - Code Status/Comfort Care Code Status Assessed: Yes (Full code) Critical Care: No Time Spent Managing Pts Care (In Minutes): 55 <Lorenzo Garcia - Last Filed: 07/02/20 23:35> - Plan plan of care reviewed as noted above by Lorenzo Garcia chest pain, r/o ACS given risk factors, trend trop. cardio consulted possibly due to GERD / gastritis <Merlin Mckinney - Last Filed: 07/03/20 14:49>
[2020-07-03] MEDS ORDERED: ACETAMINOPHEN 500 MG TAB PO PRN (01:10)
[2020-07-03] MEDS ORDERED: ONDANSETRON 4 MG/2 ML VIAL IV PRN (01:10)
[2020-07-03] MEDS ORDERED: MORPHINE 2 MG/ML SYR IV PRN (01:10)
[2020-07-03 01:29] VITALS: BMI 29.2
[2020-07-03] MEDS ORDERED: METOPROLOL TAR 25 MG TAB PO SCH (06:00)
[2020-07-03] MEDS ORDERED: LEVOTHYROXINE SOD 0.125 MG TAB PO SCH (06:30)
[2020-07-03 07:58] LABS: Absolute Lymphocytes (CBC) 2.3 K/uL (0.7-4.9); Basophils % 1.3 % (0-1.3); Hematocrit 39.2 % (39.6-49.0); Lymphocytes % 32.8 % (15.3-44.8); MPV 9.4 fL (7.6-11.3); RBC Red Blood Cell Count 4.08 M/uL (4.33-5.43)
[2020-07-03 08:04] LABS: BUN Blood Urea Nitrogen 14 mg/dL (7-18); Bicarbonate 29 mmol/L (21-32); Glucose Level 83 mg/dL (74-106); HDL Cholesterol 27 mg/dL (40-60); LDL Cholesterol, Calculated 104 (<130); Magnesium 2.3 mg/dL (1.8-2.4); Potassium 4.1 mmol/L (3.5-5.1); Sodium Level 144 mmol/L (136-145); Troponin I < 0.02 ng/mL (0.0-0.045)
[2020-07-03] MEDS ORDERED: ENOXAPARIN 40 MG/0.4 ML SQ SCH (09:00)
[2020-07-03] MEDS ORDERED: ASPIRIN EC 81 MG TAB PO SCH (09:00)
[2020-07-03] MEDS ORDERED: PANTOPRAZOLE 40MG TABLET PO ONE (10:15)
[2020-07-03] MEDS ORDERED: SUCRALFATE 1 GM TABLET PO SCH (11:30)
[2020-07-03 11:57] VITALS: O2SAT 97
[2020-07-03 13:09] VITALS: BP 120/75; TEMP 97.4
--- NOTE | 2020-07-03 18:27 | CON ---
Date of Consultation: 07/03/2020 Reason For Consultation: Chest pain. History Of Present Illness: This is a 49-year-old male with history of hypothyroidism, active smoker , 1-1/2 pack per day, presented with chest tightness and shortness of breath with exertion, radiates to the neck and shoulder and right arm. Pain has completely resolved. Does not have any further com plaints today. Wants to go home. His troponins have been negative. Past Medical History: As outlined above in HPI. Medications: Refer to reconciliation sheet for detailed list. Allergies: NO KNOWN DRUG ALLERGIES. Social History: Heavy smoker. Does not drink or use any drugs. Review of Systems: All systems reviewed and they were negative except what mentioned in the HPI. Physical Examination: Vital Signs: Temperature is 97.4, pulse 81, breathing at 16, blood pressure 120/75, saturating 97%. General: Pleasant middle-aged male, in no apparent distress. Head and Neck: Pupils are equal, reactive to light. Intact eye movements. No JVD. No cervical lym phadenopathy. Neck: Supple. Thyroid is not enlarged. Lungs: Clear to auscultation bilaterally. No rhonchi, rales, or crackles. No accessory muscle use. Heart: Regular rate and rhythm. No extra sounds. Abdomen: Soft, nontender. Bowel sounds positive. No organomegaly. No masses or hernia. No rigidi ty or rebound. Extremities: No edema, clubbing, or cyanosis. Intact pulses. Skin: No rash noted. Neurologic: Alert, awake, oriented x3. No acute focal deficits appreciated. Investigations: Troponins x3 are negative. Creatinine 1.07. Hemoglobin is 12.9. Assessment And Recommendations: 1.Chest pain. It is exertional and found to have some typical features. Cardiac enzymes are negati ve and the patient has been chest pain-free since he came to the floor and he wants to go home. At t his point, he can be released and have him follow up very soon in the office for an exercise stress t est and then an echocardiogram. If the patient agrees to stay until tomorrow, recommend to do a stre ss test before discharge. 2.Tobacco disorder. The patient was counseled against smoking in details. SR/MODL Voice ID: [id number] Report ID: [id number]
--- NOTE | 2020-07-03 20:01 | P.DS ---
Admission Date: 07/02/20 Discharge Date: 07/03/20 Primary Care Provider: Dr. Hernandez Disposition: ROUTINE DISCHARGE Discharge Condition: GOOD Reason for Admission: Chest pain Consultations: Cardiology - Dr. Mcnally Procedures: CXR: No acute cardiopulmonary process. Interstitial pattern matches comparison. No significant change from comparison study. Problem List: Chest pain rule out ACS Hypothyroidism Tobacco abuse Brief History of Present Illness: 49yo M, PMH: Hypothyroidism, presents to ED with chest pain. Intermittent chest tightness over the course of the last 3 days worse today associated with some dizziness and shortness of breath. Pain radiates to left shoulder, neck and has tingling in the right arm. Patient also reports some anxiety related to the pain. Workup in the emergency department unremarkable, chest x-ray unremarkable. Initial troponin negative, D-dimer negative, and EKG without acute changes. Patient with family history of heart disease, smokes heavily, ED provider wishes to admit patient for chest pain rule out. Hospital Course: Patient had resolution of his chest pain and troponins remained negative x 3. Cardiology was consulted and recommended stress testing. Patient felt better, had some improvement with protonix, and wanted to be discharged home. He will follow up with Cardiology for outpatient stress testing. He was discharged home with protonix to treat possible gastritis / GERD. He was advised to follow up with his PCP as well. Vital Signs/Physical Exam: Physical Exam General: Alert, In no apparent distress HEENT: Atraumatic, PERRLA Neck: Supple, 2+ carotid pulse no bruit Respiratory: Clear to auscultation bilaterally, Normal air movement Cardiovascular: Regular rate/rhythm, Normal S1 S2 Gastrointestinal: Normal bowel sounds, No tenderness Musculoskeletal: No tenderness Integumentary: No rashes Neurological: Normal speech, Normal strength at 5/5 x4 extr, Normal tone, Normal affect Temp Pulse Resp BP Pulse Ox 97.4 F 81 16 120/75 97 07/03/20 12:00 07/03/20 12:00 07/03/20 12:00 07/03/20 12:00 07/03/20 12:00 Laboratory Data at Discharge: WBC 7.10 K/uL (4.3-10.9) D 07/03/20 07:06 Hgb 12.9 g/dL (13.6-17.9) L 07/03/20 07:06 Hct 39.2 % (39.6-49.0) L 07/03/20 07:06 Plt Count 207 K/uL (152-406) 07/03/20 07:06 PT 11.3 SECONDS (9.5-12.5) 07/02/20 19:50 INR 0.98 07/02/20 19:50 Sodium 144 mmol/L (136-145) 07/03/20 07:06 Potassium 4.1 mmol/L (3.5-5.1) 07/03/20 07:06 BUN 14 mg/dL (7-18) 07/03/20 07:06 Creatinine 1.07 mg/dL (0.55-1.3) 07/03/20 07:06 Glucose 83 mg/dL (74-106) 07/03/20 07:06 Magnesium 2.3 mg/dL (1.8-2.4) 07/03/20 07:06 Total Bilirubin 0.2 mg/dL (0.2-1.0) 07/02/20 19:50 AST 18 U/L (15-37) 07/02/20 19:50 ALT 32 U/L (12-78) 07/02/20 19:50 Alkaline Phosphatase ND 07/02/20 19:50 Troponin I < 0.02 ng/mL (0.0-0.045) 07/03/20 11:43 Triglycerides 103 mg/dL (<150) 07/03/20 07:06 Cholesterol 152 mg/dL (<200) 07/03/20 07:06 HDL Cholesterol 27 mg/dL (40-60) L 07/03/20 07:06 Cholesterol/HDL Ratio 5.63 07/03/20 07:06 Lipase Cancelled 07/02/20 20:11 Home Medications: Aspirin [Aspirin EC 81 MG] 81 mg PO DAILY 30 Days #30 tablet. 07/03/20 Levocetirizine Dihydrochloride [Xyzal] 5 mg PO BEDTIME 07/03/20 Levothyroxine Sodium [Synthroid] 150 mcg PO DAILY 07/03/20 Montelukast [Singulair*] 10 mg PO BEDTIME 07/03/20 Pantoprazole [Protonix Tab*] 40 mg PO DAILY 30 Days #30 tab 07/03/20 New Medications: Aspirin [Aspirin EC 81 MG] 81 mg PO DAILY 30 Days #30 tablet. Pantoprazole [Protonix Tab*] 40 mg PO DAILY 30 Days #30 tab Physician Discharge Instructions: Your EKG and cardiac enzyme (troponins) were normal - did not show any signs of heart damage. Your chest pain may be due to some blockage in your heart, or possibly from some acid reflux / inflammation of your stomach lining. You are discharged with a prescription for pantoprazole (daily antacid). Follow up with Dr. Mcnally in the next week to schedule outpatient stress test to further evaluate your heart. Recommend following up with your PCP regarding your acid reflux. Diet: AHA Activity: Ad nicole Followup: Yuri Mcnally MD [ACTIVE - CAN ADMIT] - 1-2 Weeks (Call for appointment) Romero Hernandez MD [Primary Care Provider] - 1-2 Weeks (Call for appointment) Time spent managing pt's care (in minutes): 40
[2020-07-03] MEDS ORDERED: LORATADINE 10 MG TAB PO SCH (21:00)
[2020-07-03] MEDS ORDERED: ATORVASTATIN 40 MG TAB PO SCH (21:00)
[2020-07-03] MEDS ORDERED: NICOTINE 21 MG/PAT TD SCH (21:00)
[2020-07-03] MEDS ORDERED: MONTELUKAST 10 MG TAB PO SCH (21:00)
== END 2020-07-03 16:30 | disposition home or self-care (01) ==
LOC: ER 19:12 → ERHOLD 23:04 → 4TH 07-03 00:49
PROVIDERS: ADMIT Hospitalist; ATTEND Hospitalist
DX: R07.9 Chest pain, unspecified (principal); E03.9 Hypothyroidism, unspecified; Z82.49 Family history of ischemic heart disease and other diseases of the circulatory system; F17.210 Nicotine dependence, cigarettes, uncomplicated; Z20.822 Contact with and (suspected) exposure to COVID-19
CPT/HCPCS: 96361; 93005; 85025 ×2; 80048 ×2; 36415; 83735 ×2; 85610; 80061; 85379; 80076; 84443; 84484 ×3; 84439; 83690; 83880; 71045; 96375; 96374; 99283; U0003; J1650; J7030; J2405; G0378

== ENCOUNTER 2022-04-11 16:13 | Emergency (ER) | payer SELFPAY ==
--- OUTSIDE RECORDS SUMMARY | 2022-04-11 16:17 | XMS REPORT | Continuity of Care Document ---
:1970 Author Organization [facility] t Address [address] [place] [address] Care Team Providers Name Role Phone Lab, Adc Fam Pob I Attending Clinician Unavailable Sherlyn Jones Attending Clinician [phone] SHERLYN FUENTES Attending Clinician Unavailable Tamica Oakley Attending Clinician Jean Sebastian Attending Clinician JEAN CARRERA Attending Clinician Unavailable Anya López Attending Clinician Doctor Unassigned, [place] Attending Clinician Unavailable Payers Payer Name Policy Type Policy Number Effective Date Expiration Date S ource Problems This patient has no known problems. Allergies, Adverse Reactions, Alerts Allergy Allergy Status Severity Reaction(s) Onset Inactive Treating Comm ents Source Name Type Date Date Clinician NO KNOWN Drug Active [facility] Class ity of [facility] Social History Social Habit Start Date Stop Date Quantity Comments Source Exposure to Not sure [facility] SARS-CoV-2 (event) Medica l Branch Sex Assigned At [birth year] [facility] 00:00:00 00:00:00 [facility] Smoking Status Start Date Stop Date Source Unknown if ever smoked [facility] Medications This patient has no known medications. Procedures This patient has no known procedures. Encounters Start End Encounter Admission Attending Care Care Encounter Source Date/Time Date/Time Type Type Clinicians Facility Department ID 2020-11-28 2020-11-28 Laboratory Lab, [facility] Fam Pob I [facility] 1.2. 840.114 [id number] Univers 13:32:08 13:52:08 Only Sherlyn Fuentes [facility] 350.1.1 3.10 [facility] [place] [id number] [place] as Professio [phone] N[place] dicky nal [address] [place] [address] Office Building One 2020-11-28 2020-11-28 Outpatient R LEONARDO [facility] [id number] Univers 13:30:00 13:30:00 SHERLYN Pendleton it y of [facility] 2020-11-19 2020-11-19 Outpatient R [facility] [id number] Univers 18:20:00 18:20:00 ity of [facility] 2020-11-19 2020-11-19 Laboratory Lab, [facility] Fam Pob I [facility] 1.2. 840.114 [id number] Univers 17:37:55 17:57:55 Only Tamica Decker Health [id number] [facility] [place] [id number] [place] as Professio [phone] [facility] nal [address] [place] [address] Office Building [facility] 2020-08-13 2020-08-13 Laboratory Lab, [facility] Fam Pob I [facility] 1.2. 840.114 [id number] Univers 10:03:21 10:23:21 Only Jean Carrera Health [id number] [facility] [place] [id number] [place] as Professio [phone] [facility] nal [address] [place] [address] Office Building One 2020-08-13 2020-08-13 Outpatient R DEBI [facility] [id number] Univers 10:00:00 10:00:00 JEAN ity of [facility] 2020-04-24 2020-04-24 Laboratory Lab, [facility] [id number] 09:17:47 09:37:47 Only Fam Pob I Health [id number] [place] [id number] Professio [phone] nal [facility] Office Building One 2020-04-24 2020-04-24 Laboratory Lab, [facility] Fam Pob I [facility] 1.2. 840.114 [id number] Univers 09:17:47 09:37:47 Only Anya Cadena [facility] [id number] ity of [place] [id number] [place] as Professio [phone] [facility] [address] 2020-04-24 2020-04-24 Outpatient R [facility] [id number] Univers 09:20:00 09:20:00 ity of [facility] 2020-04-24 2020-04-24 Letter Doctor GREGORIA [id number] 00:00:00 00:00:00 (Out) Unassigned, JANE [id number] [place] [facility] [id number] [phone] [facility] 2020-04-24 2020-04-24 Letter Doctor GREGORIA [id number] Univers 00:00:00 00:00:00 (Out) Unassigned, JANE [id number] ity of [place] [facility] [id number] [place] as [phone] [address] Results This patient has no known results.
[2022-04-11] MEDS ORDERED: NA CHLORIDE 0.9% 1,000 ML ONE ×2 (17:09→19:40)
[2022-04-11 17:17] LABS: Protime INR 1.25
[2022-04-11 17:21] LABS: Absolute Lymphocytes (CBC) 0.9 K/uL (0.7-4.9); Hematocrit 39.8 % (39.6-49.0); Lymphocytes % 7.2 % (15.3-44.8); MCV 90.3 fL (80-100); MPV 8.2 fL (7.6-11.3)
[2022-04-11 17:37] LABS: Bilirubin Direct 0.3 mg/dL (0-0.2); Bilirubin Total 0.7 mg/dL (0.2-1.0); Magnesium 2.1 mg/dL (1.6-2.4); Potassium 3.7 mmol/L (3.5-5.1); Troponin High Sensitivity 4.3 pg/mL (<58.9)
[2022-04-11 18:05] LABS: SARS-COV-2 RT PCR POSITIVE (NEGATIVE)
[2022-04-11] MEDS ORDERED: ACETAMINOPHEN 500 MG TAB ONE (18:14)
[2022-04-11] MEDS ORDERED: ONDANSETRON 4 MG/2 ML VIAL ONE (18:14)
--- NOTE | 2022-04-11 18:27 | RAD REPORT ---
EXAM DESCRIPTION: RAD - Chest Single View - 04/11/2022 6:14 pm CLINICAL HISTORY: CHEST PAIN Chest pain. COMPARISON: Chest Single View dated 07/02/2020; Chest Single View dated 11/01/2019; Chest Pa And Lat ( 2 Views) dated 04/10/2016 FINDINGS: Portable technique limits examination quality. Opacity is present in the left lung base suspicious for pneumonia. The lungs are otherwise clear. The heart is normal in size. No displaced fractures. IMPRESSION: Suspected left lung base pneumonia.
--- NOTE | 2022-04-11 18:34 | RAD REPORT ---
EXAM DESCRIPTION: CT - Chest For Pe Angio - 04/11/2022 6:27 pm CLINICAL HISTORY: Chest pain. chest pain COMPARISON: No comparisons TECHNIQUE: CT angiogram of the pulmonary arteries was performed with MIP. All CT scans are performed using dose optimization technique as appropriate and may include automated exposure control or mA/KV adjustment according to patient size. FINDINGS: No evidence of pulmonary thromboembolism. No acute aortic finding demonstrated. Moderate airspace consolidation is present in the left lung base posteriorly likely representing an p neumonia. Moderate COPD. No significant pericardial or pleural fluid. No concerning bony finding. IMPRESSION: No evidence of pulmonary thromboembolism. Moderate airspace consolidation left lung base compatible with pneumonia.
[2022-04-11 18:35] LABS: Urine Blood Negative (Negative); Urine Glucose Negative (Negative); Urine Protein Trace (Negative); Urine Specific Gravity 1.015 (1.005-1.030)
[2022-04-11 18:46] LABS: Urine Bacteria None Seen /HPF (<20); Urine RBC <5 /HPF (None Seen)
[2022-04-11] MEDS ORDERED: AZITHROMYCIN 250 MG TAB ONE (19:39)
[2022-04-11] MEDS ORDERED: CEFTRIAXONE 1000 MG/VIAL ONE (19:39)
[2022-04-11] MEDS ORDERED: LEVALBUTEROL 1.25 MG/3 ML NEB ONE (19:40)
[2022-04-11] MEDS ORDERED: NA CHLORIDE 0.9% 50 ML IV ONE (19:40)
[2022-04-11] MEDS ORDERED: KETOROLAC 30 MG/ML INJ ONE (19:40)
--- NOTE | 2022-04-11 20:53 | ER ---
Nurse's Notes [facility] Name: Carlos Logan Age: 51 yrs Sex: Male : 1970 Arrival Date: 04/11/2022 Time: 16:17 Bed 19 Private MD: Diagnosis: SARS-associated coronavirus as the cause of diseases classified elsewhere;Pneumonia in diseases classified elsewhere;Chest pain, unspecified Presentation: 04/11 16:36 Chief complaint: Headache, sinus congestion, cough, extreme thirst, body aches, fever, hb and malaise x 3-4 days. Coronavirus screen: Client presents with at least one sign or symptom that may indicate coronavirus-19. Provider contacted for isolation considerations. Ebola Screen: No symptoms or risks identified at this time. Initial Sepsis Screen: Does the patient meet any 2 criteria? HR > 90 bpm. No. Patient's initial sepsis screen is negative. Does the patient have a suspected source of infection? No. Patient's initial sepsis screen is negative. Risk Assessment: Do you want to hurt yourself or someone else? Patient reports no desire to harm self or others. Onset of symptoms was March 29, 2022. 16:36 Method Of Arrival: Ambulatory hb 16:36 Acuity: PAULY 2 hb Triage Assessment: 19:00 Pain: Pain currently is 5 out of 10 on a pain scale. Also complains of. pf1 19:00 Headache History: Denies prior headaches. pf1 19:00 Pain: Pain began 1 day ago. pf1 Historical: - Allergies: 16:38 No Known Allergies; hb - PMHx: 16:38 Hypothyroidism; hb - Immunization history:: Adult Immunizations unknown. - Social history:: Smoking status: Patient denies any tobacco usage or history of. Screenin:00 [facility] ED Fall Risk Assessment (Adult) History of falling in the last 3 months, ko1 including since admission No falls in past 3 months (0 pts) Confusion or Disorientation No (0 pts) Intoxicated or Sedated No (0 pts) Impaired Gait No (0 pts) Mobility Assist Device Used No (0 pt) Altered Elimination No (0 pt) Score/Fall Risk Level 0 - 2 = Low Risk Oriented to surroundings, Maintained a safe environment, Educated pt \T\ family on fall prevention, incl call for assistance when getting out of bed, Assessed \T\ reinforced patient's understanding of fall precautions, Provided non-skid footwear, Hourly rounding (assess needs \T\ fall precautionary measures) done, Used ambulatory aids as needed (educated on \T\ assisted with), Used gait belt as appropriate. Abuse screen: Denies threats or abuse. Denies injuries from another. Nutritional screening: No deficits noted. Tuberculosis screening: No symptoms or risk factors identified. Assessment: 16:45 General: Appears distressed, uncomfortable, Behavior is calm, cooperative, appropriate ko1 for age. Pain: Complains of pain in top of head, forehead, right yarsani and left yarsani. Neuro: No deficits noted. Cardiovascular: No deficits noted. Respiratory: Reports shortness of breath on exertion cough that is productive. GI: Reports lower abdominal pain, nausea. : No deficits noted. EENT: No deficits noted. Derm: No deficits noted. Musculoskeletal: No deficits noted. 19:00 General: Appears in no apparent distress. comfortable, well groomed, well developed, pf1 Behavior is calm, cooperative, appropriate for age, quiet. 19:00 Pain: Complains of pain in forehead and top of head. Neuro: Level of Consciousness is pf1 awake, alert, obeys commands, Oriented to person, place, time, situation. Cardiovascular: No deficits noted. Respiratory: No deficits noted. Reports cough that is productive, Patient denies any SOB at this time. Airway is patent Respiratory effort is even, unlabored, Respiratory pattern is regular, symmetrical, Breath sounds are clear bilaterally. GI: Reports nausea. : No deficits noted. EENT: No deficits noted. Derm: No deficits noted. Musculoskeletal: No deficits noted. Vital Signs: 16:36 BP 130 / 83; Pulse 131; Resp 20; Temp 99.9(TE); Pulse Ox 93% on R/A; Weight 97.52 kg; hb Height 6 ft. (182.88 cm); Pain 4/10; 17:00 BP 132 / 119; Pulse 119; Resp 22; Pulse Ox 96% ; ko1 18:00 BP 95 / 63; Pulse 104; Resp 18; Pulse Ox 94% on R/A; ko1 19:00 BP 102 / 68; Pulse 103; Resp 17; Temp 99; Pulse Ox 95% on R/A; Pain 4/10; pf1 20:00 BP 101 / 67; Pulse 99; Resp 18; Pulse Ox 94% on R/A; Pain 4/10; pf1 21:00 BP 101 / 52; Pulse 108; Resp 18; Temp 98.3; Pulse Ox 95% on R/A; Pain 4/10; pf1 16:36 Body Mass Index 29.16 (97.52 kg, 182.88 cm) hb ED Course: 16:17 Patient arrived in ED. mr 16:23 Dangelo Martines PA is PHCP. cp 16:23 Dangelo Falk MD is Attending Physician. cp 16:38 Triage completed. hb 16:38 Arm band placed on. hb 16:58 Loreto Barrera, ASHLEIGH is Primary Nurse. ko1 17:00 Patient has correct armband on for positive identification. Bed in low position. Call ko1 light in reach. Side rails up X 1. Client placed on continuous cardiac and pulse oximetry monitoring. NIBP monitoring applied. artist's manager on. 17:00 Inserted saline lock: 20 gauge in left antecubital area, using aseptic technique. Blood hb collected. 17:08 COVID-19/FLU A+B Sent. hb 17:08 Lactate w/ 2H reflex if indic. Sent. hb 17:08 Procalcitonin Sent. hb 17:09 Basic Metabolic Panel Sent. hb 17:09 CBC with Diff Sent. hb 17:09 D-Dimer Sent. hb 17:09 LFT's Sent. hb 17:09 Magnesium Sent. hb 17:09 NT PRO-BNP Sent. hb 17:09 PT-INR Sent. hb 17:09 Troponin HS Sent. hb 17:23 Notified ED physician of a critical lab result(s). D-Dimer 1204 notified Dangelo Martines. hb 18:15 XRAY Chest (1 view) In Process Unspecified. EDMS 18:29 CT Chest For PE Angio In Process Unspecified. EDMS 21:19 No provider procedures requiring assistance completed. IV discontinued, intact, pf1 bleeding controlled, No redness/swelling at site. Pressure dressing applied. Administered Medications: 17:08 Drug: NS 0.9% 1000 ml Route: IV; Rate: 1 bolus; Site: left antecubital; hb 18:27 Drug: Zofran (Ondansetron) 4 mg Route: IVP; Site: left antecubital; ko1 18:27 CANCELLED (Duplicate Order): Tylenol 650 mg PO once ko1 18:27 CANCELLED (Duplicate Order): Zofran (Ondansetron) 4 mg IVP once; over 2 minutes ko1 18:28 Drug: Tylenol 1000 mg Route: PO; ko1 19:20 Follow up: Response: Pain is decreased; RASS: Alert and Calm (0) pf1 20:05 Drug: Rocephin - (cefTRIAXone) 1 grams Route: IVPB; Infused Over: 30 mins; Site: left pf1 antecubital; 20:35 Follow up: IV Status: Completed infusion; IV Intake: 50ml pf1 20:05 Drug: Zithromax (azithromycin) 500 mg Route: PO; pf1 21:00 Follow up: Response: No adverse reaction pf1 20:05 Drug: NS 0.9% 1000 ml Route: IV; Rate: 1 bolus; Site: left antecubital; pf1 21:30 Follow up: IV Status: Completed infusion; IV Intake: 1000ml pf1 20:05 Drug: Ketorolac 15 mg Route: IVP; Site: left antecubital; pf1 21:00 Follow up: Response: Pain is decreased; RASS: Alert and Calm (0) pf1 20:13 Drug: Xopenex (levalbuterol) (3) 1.25 mg Route: Inhalation; pf1 21:00 Follow up: Response: Marked relief of symptoms pf1 Medication: 19:00 VIS not applicable for this client. pf1 Intake: 20:35 IV: 50ml; Total: 50ml. pf1 21:30 IV: 1000ml; Total: 1050ml. pf1 Outcome: 20:52 Discharge ordered by MD. cp 21:18 Discharged to home ambulatory, with family. pf1 21:18 Condition: stable 21:18 Discharge instructions given to patient, Instructed on discharge instructions, follow up and referral plans. medication usage, Demonstrated understanding of instructions, follow-up care, medications, Prescriptions given X 4. 21:33 Patient left the ED. pf1 Signatures: Dispatcher [employer] [facility] Selena Zhu Dangelo Martines PA PA cp Baxter, Heather, RN RN Loreto Barrera RN RN ko1 Malini palomino RN RN pf1 Corrections: (The following items were deleted from the chart) 17:25 17:23 Notified ED physician of hb : 16:00 Patient has correct armband on for positive identification. Bed in low position. ko1 Call light in reach. Side rails up X 1. ko : 16:00 Client placed on continuous cardiac and pulse oximetry monitoring. NIBP ko1 monitoring applied. artist's manager on. ko 16:00 [facility] ED Fall Risk Assessment (Adult) History of falling in the last 3 months, ko1 including since admission No falls in past 3 months (0 pts) Confusion or Disorientation No (0 pts) Intoxicated or Sedated No (0 pts) Impaired Gait No (0 pts) Mobility Assist Device Used No (0 pt) Altered Elimination No (0 pt) Score/Fall Risk Level 0 - 2 = Low Risk Oriented to surroundings, Maintained a safe environment, Educated pt \T\ family on fall prevention, incl call for assistance when getting out of bed, Assessed \T\ reinforced patient's understanding of fall precautions, Provided non-skid footwear, Hourly rounding (assess needs \T\ fall precautionary measures) done, Used ambulatory aids as needed (educated on \T\ assisted with), Used gait belt as appropriate ko 16:00 Abuse screen: Denies threats or abuse. Denies injuries from another. [place] [id number] : 16:00 Nutritional screening: No deficits noted. [place] [id number] : 16:00 Tuberculosis screening: No symptoms or risk factors identified. [place] [id number]
--- NOTE | 2022-04-11 20:53 | EDPHYS ---
Physician Documentation [facility] Name: Carlos Logan Age: 51 yrs Sex: Male : 1970 Arrival Date: 04/11/2022 Time: 16:17 Bed 19 Private MD: ED Physician Dangelo Falk HPI: 04/11 16:55 This 51 yrs old Male presents to ER via Ambulatory with complaints of Headache, Urinary cp Problem, Chills,Dehydration. 16:55 The patient complains of pain to the top of head and forehead. The patient describes cp the headache as aching. 16:55 The patient or guardian reports chest pain that is located primarily in the anterior cp chest wall. 16:55 Onset: 3 day(s) ago. Associated signs and symptoms: Pertinent positives: fever, cough, cp congestion, chills, body aches. Historical: - Allergies: 16:38 No Known Allergies; hb - PMHx: 16:38 Hypothyroidism; hb - Immunization history:: Adult Immunizations unknown. - Social history:: Smoking status: Patient denies any tobacco usage or history of. ROS: 17:00 Constitutional: Positive for body aches, chills, poor PO intake, Negative for fever. cp 17:00 Eyes: Negative for injury, pain, redness, and discharge. cp 17:00 ENT: Positive for sinus congestion, sore throat, Negative for drainage from ear(s), ear pain, difficulty swallowing, difficulty handling secretions. 17:00 Cardiovascular: Positive for chest pain, Negative for edema, palpitations. 17:00 Respiratory: Positive for cough, "sounds productive". 17:00 Abdomen/GI: Negative for abdominal pain. 17:00 Skin: Negative for rash. 17:00 Neuro: Positive for headache, Negative for altered mental status, syncope, weakness. 17:00 All other systems are negative. Exam: 16:53 ECG was reviewed by the Attending Physician. cp 17:05 Constitutional: The patient appears in no acute distress, alert, awake, cp non-diaphoretic, non-toxic, well developed, well nourished, uncomfortable. 17:05 Head/Face: Normocephalic, atraumatic. cp 17:05 Eyes: Periorbital structures: appear normal, Conjunctiva: normal, no exudate, no injection, Sclera: no appreciated abnormality, Lids and lashes: appear normal, bilaterally. 17:05 ENT: External ear(s): are unremarkable, Ear canal(s): are normal, clear, TM's: dullness, bilaterally, Nose: is normal, Mouth: Lips: moist, Oral mucosa: moist, Posterior pharynx: Airway: no evidence of obstruction, patent, Tonsils: with erythema, no enlargement, no exudate, swelling, is not appreciated, erythema, that is mild, exudate, is not appreciated. 17:05 Neck: ROM/movement: is normal, is supple, no meningismus, no nuchal rigidity. 17:05 Chest/axilla: Inspection: normal, Palpation: is normal, no crepitus, no tenderness. 17:05 Cardiovascular: Rate: tachycardic, Rhythm: regular, Edema: is not appreciated, JVD: is not appreciated. 17:05 Respiratory: the patient does not display signs of respiratory distress, Respirations: normal, no use of accessory muscles, no retractions, labored breathing, is not present, Breath sounds: bronchial sounds, that are mild, are heard diffusely, stridor, is not appreciated, wheezing: is not appreciated. 17:05 Abdomen/GI: Inspection: abdomen appears normal, Palpation: abdomen is soft and non-tender, in all quadrants. 17:05 Skin: no rash present. 17:05 Neuro: Orientation: to person, place \\T\\ time. Mentation: is normal, Motor: moves all fours, strength is normal, Sensation: is normal. Vital Signs: 16:36 BP 130 / 83; Pulse 131; Resp 20; Temp 99.9(TE); Pulse Ox 93% on R/A; Weight 97.52 kg; hb Height 6 ft. (182.88 cm); Pain 4/10; 17:00 BP 132 / 119; Pulse 119; Resp 22; Pulse Ox 96% ; ko1 18:00 BP 95 / 63; Pulse 104; Resp 18; Pulse Ox 94% on R/A; ko1 19:00 BP 102 / 68; Pulse 103; Resp 17; Temp 99; Pulse Ox 95% on R/A; Pain 4/10; pf1 20:00 BP 101 / 67; Pulse 99; Resp 18; Pulse Ox 94% on R/A; Pain 4/10; pf1 21:00 BP 101 / 52; Pulse 108; Resp 18; Temp 98.3; Pulse Ox 95% on R/A; Pain 4/10; pf1 16:36 Body Mass Index 29.16 (97.52 kg, 182.88 cm) hb MDM: 16:39 Patient medically screened. cp 17:00 Differential diagnosis: acute myocardial infarction, acute pericarditis, pericarditis, cp pleurisy, pneumonia, pneumothorax, COVID-19, Influenza sinusitis. 20:51 Data reviewed: vital signs, nurses notes, lab test result(s), EKG, radiologic studies, cp CT scan, plain films. 20:51 Test interpretation: by ED physician or midlevel provider: ECG, plain radiologic cp studies. Counseling: I had a detailed discussion with the patient and/or guardian regarding: the historical points, exam findings, and any diagnostic results supporting the discharge/admit diagnosis, lab results, radiology results, the need for outpatient follow up, a family practitioner, to return to the emergency department if symptoms worsen or persist or if there are any questions or concerns that arise at home. Response to treatment: the patient's symptoms have markedly improved after treatment, and as a result, I will discharge patient. Special discussion: Based on the patient's history, exam, and Dx evaluation, there is no indication for emergent intervention or inpatient Tx. It is understood by the patient/guardian that if the Sx's persist or worsen they need to return immediately for re-evaluation. ED course: VSS. Symptoms markedly improved with meds and IV fluids. Patient appears non-toxic and no signs of respiratory distress. Will treat pneumonia outpatient with oral antibiotics. 04/11 16:47 Order name: Basic Metabolic Panel; Complete Time: 17:52 cp 04/11 18:06 Interpretation: Normal except: NA 133; GLUC 119; GFR 74. cp 04/11 16:47 Order name: CBC with Diff; Complete Time: 17:52 cp 04/11 17:52 Interpretation: Normal except: WBC 12.70; HGB 13.3; DAIANA% 82.6; LYM% 7.2; NEUT A 10.5. cp 04/11 16:47 Order name: D-Dimer; Complete Time: 17:52 cp 04/11 16:47 Order name: LFT's; Complete Time: 17:52 cp 04/11 18:37 Interpretation: Normal except: BILID 0.3; ALB 3.0; GLOB 5.0; A/G 0.6. 04/11 16:47 Order name: Magnesium; Complete Time: 17:52 04/11 16:47 Order name: NT PRO-BNP; Complete Time: 17:52 04/11 16:47 Order name: PT-INR; Complete Time: 17:52 04/11 16:47 Order name: Troponin HS; Complete Time: 17:52 04/11 16:47 Order name: Lactate w/ 2H reflex if indic.; Complete Time: 17:52 04/11 18:07 Interpretation: Reviewed. 04/11 16:47 Order name: Blood Culture Adult (2) 04/11 16:47 Order name: Procalcitonin; Complete Time: 18:25 04/11 18:25 Interpretation: Reviewed. 04/11 16:47 Order name: COVID-19/FLU A+B; Complete Time: 18:06 04/11 18:06 Interpretation: Abnormal: SARSCOV2 RT PCR POSITIVE. 04/11 16:47 Order name: Urine Microscopic Only; Complete Time: 18:58 04/11 18:36 Order name: Urine Dipstick-Ancillary; Complete Time: 18:36 EDMS 04/11 18:36 Interpretation: Normal except: UKET 2+; UPROT Trace. 04/11 16:47 Order name: XRAY Chest (1 view); Complete Time: 18:36 04/11 16:47 Order name: EKG; Complete Time: 16:48 04/11 16:47 Order name: Cardiac monitoring; Complete Time: 17:08 04/11 16:47 Order name: EKG - Nurse/Tech; Complete Time: 17:08 04/11 16:47 Order name: IV Saline Lock; Complete Time: 17:09 04/11 18:10 Order name: CT Chest For PE Angio; Complete Time: 18:36 04/11 18:37 Interpretation: Report reviewed. 04/11 16:47 Order name: Labs collected and sent; Complete Time: 17:09 04/11 16:47 Order name: O2 Per Protocol; Complete Time: 17:09 04/11 16:47 Order name: O2 Sat Monitoring; Complete Time: 17:09 04/11 16:47 Order name: Urine Dipstick-Ancillary (obtain specimen); Complete Time: 18:50 cp 04/11 19:33 Order name: PO challenge; Complete Time: 20:57 cp EC:53 Rate is 116 beats/min. Rhythm is regular. MO interval is normal. QRS interval is cp normal. QT interval is normal. T waves are Inverted in lead aVR. Interpreted by me. Reviewed by me. Administered Medications: 17:08 Drug: NS 0.9% 1000 ml Route: IV; Rate: 1 bolus; Site: left antecubital; hb 18:27 Drug: Zofran (Ondansetron) 4 mg Route: IVP; Site: left antecubital; ko1 18:27 CANCELLED (Duplicate Order): Tylenol 650 mg PO once ko1 18:27 CANCELLED (Duplicate Order): Zofran (Ondansetron) 4 mg IVP once; over 2 minutes ko1 18:28 Drug: Tylenol 1000 mg Route: PO; ko1 19:20 Follow up: Response: Pain is decreased; RASS: Alert and Calm (0) pf1 20:05 Drug: Rocephin - (cefTRIAXone) 1 grams Route: IVPB; Infused Over: 30 mins; Site: left pf1 antecubital; 20:35 Follow up: IV Status: Completed infusion; IV Intake: 50ml pf1 20:05 Drug: Zithromax (azithromycin) 500 mg Route: PO; pf1 21:00 Follow up: Response: No adverse reaction pf1 20:05 Drug: NS 0.9% 1000 ml Route: IV; Rate: 1 bolus; Site: left antecubital; pf1 21:30 Follow up: IV Status: Completed infusion; IV Intake: 1000ml pf1 20:05 Drug: Ketorolac 15 mg Route: IVP; Site: left antecubital; pf1 21:00 Follow up: Response: Pain is decreased; RASS: Alert and Calm (0) pf1 20:13 Drug: Xopenex (levalbuterol) (3) 1.25 mg Route: Inhalation; pf1 21:00 Follow up: Response: Marked relief of symptoms pf1 Disposition Summary: 04/11/22 20:52 Discharge Ordered Location: Home cp Problem: new cp Symptoms: have improved cp Condition: Stable cp Diagnosis - SARS-associated coronavirus as the cause of diseases classified elsewhere cp - Pneumonia in diseases classified elsewhere cp - Chest pain, unspecified cp Followup: cp - With: Private Physician - When: 2 - 3 days - Reason: Recheck today's complaints Discharge Instructions: - Discharge Summary Sheet cp - Nonspecific Chest Pain, Adult cp - Aspirin and Your Heart cp - COVID-19 cp - Things to Know about the COVID-19 Pandemic - [facility] [place] cp - 10 Things You Can Do to Manage Your COVID-19 Symptoms at Home - [facility] [place] cp - COVID-19: Quarantine vs. Isolation - [facility] [place] cp - Prevent the Spread of COVID-19 if You Are Sick - [facility] [place] cp Forms: - Medication Reconciliation Form cp - Thank You Letter cp - Antibiotic Education cp - Prescription Opioid Use cp Prescriptions: - Bromfed DM 2-30-10 mg/5 mL Oral syrup - take 10 milliliter by ORAL route every 6 hours; 180 milliliter; Refills: 0, cp Product Selection Permitted - Ibuprofen 800 mg Oral Tablet - take 1 tablet by ORAL route every 8 hours As needed take with food; 30 tablet; cp Refills: 0, Product Selection Permitted - Zithromax Z-Yoel 250 mg Oral Tablet - take 1 tablet by ORAL route as directed for 5 days Day 1 - take two (2) tablets cp one time. Day 2, 3, 4 , 5 take one (1) tablet once daily.; 6 tablet; Refills: 0, Product Selection Permitted - albuterol sulfate 90 mcg/actuation Inhalation HFA aerosol inhaler - inhale 1 puff by INHALATION route every 4-6 hours; 1 Inhaler; Refills: 0, cp Product Selection Permitted Signatures: Dispatcher [employer] [facility] Dangelo Martines PA PA cp Marion Haque RN RN Loreto Shaw RN RN ko1 Malini palomino RN RN pf1 Corrections: (The following items were deleted from the chart) 18:27 18:10 Tylenol 650 mg PO once ordered. cp ko1 18:27 18:10 Zofran (Ondansetron) 4 mg IVP once; over 2 minutes ordered. cp ko1 04/12 19:15 04/10 16:55 This 51 yrs old Male presents to ER via Ambulatory with complaints of cp Headache, Urinary Problem, Chills,Dehydration. cp
[2022-04-11 21:40] VITALS: TEMP 99.9
[2022-04-11 21:42] VITALS: BP 95/63; O2SAT 94
--- NOTE | 2022-04-12 16:06 | EKG ---
Test Date: 2022-04-11 Test Time: 16:45:57 Mold Operator: MEG MEASUREMENT RESULTS: Intervals: Rate: 118 [place]: 146 QRSD: 82 QT: 310 QTc: 434 [place]: P: 69 [place]: 146 QRS: 74 T: 49 INTERPRETIVE STATEMENTS: Sinus tachycardia Otherwise normal ECG Compared to ECG 07/02/2020 19:32:13 Ventricular premature complex(es) no longer present Right-axis deviation no longer present Electronically Signed On 04-12-22 16:04:15 [employer]CE[employer] by Yuri Mcnally
== END 2022-04-11 21:33 | disposition home or self-care (01) ==
LOC: ER 16:13
DX: U07.1 COVID-19 (principal); J17 Pneumonia in diseases classified elsewhere
CPT/HCPCS: 0240U; 36415; 71045; 71275; 80048; 80076; 81003; 81015; 83605; 83735; 83880; 84145; 84484; 85025; 85379; 85610; 87040; 93005; 96361; 96365; 96375; 99285; J2405; J7030; J7614; Q0144; Q9967

== ENCOUNTER 2024-01-25 08:28 | Emergency (ER) | payer OTHER ==
--- OUTSIDE RECORDS SUMMARY | 2024-01-25 08:31 | XMS REPORT | Continuity of Care Document ---
Author Name Unknown Address [address] [facility] 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 Role Phone Yoan Childs Attending Clinician Unavailable Lab, Adc Fam Pob I Attending Clinician Unavailab Sherlyn Frias Attending Clinician + SHERLYN FUENTES Attending Clinician Tamica Delacruz Attending Clinician [phone] Jean Sebastian Attending Clinician [phone] JEAN CARRERA Attending Clinician Unavailable Anya López Attending Clinician [phone] Doctor Unassigned, [place] Attending Clinician U navailable Payers Payer Name Policy Type Policy Number Effective Date Expirati on Date Source Problems Condition Name Condition Details Condition Category Status Onset Date Resolution Date Last Treatment Date Treating Clinician Comments Source [id number] GERD without esophagiti s Problem [facility] [id number] Acquired hypothyroi dism Problem [facility] [id number] Coronary artery disease of [place] artery of [place] heart with stable angina pectoris Problem [facility] Allergies, Adverse Reactions, Alerts Allergy Name Allergy Type Status Severity Reaction(s) Onset Date Inactive Date Treating Clinician Comments Source NO KNOWN ALLERGIE S Drug Class Active [facility] Social History Social Habit Start Date Stop Date Quantity Comments Source Sex Assigned At [facility] Exposure to SARS-CoV-2 (event) Not sure [facility] History of Tobacco Use 1990-04-17 00:00:00 2022-04-17 00:00:00 [facility] Smoking Status Start Date Stop Date Source Unknown if ever smoked [facility] Former Smoker 2024-01-11 00:00:00 2024-01-11 00:00:00 [facility] Medications Ordered Medication Name Filled Medication Name Start Date Stop Date Current Medication? Ordering Clinician Indication Dosage Frequency Signature (SIG) Comments Components Source Aspirin 81 81 MG Aspirin 81 81 MG 01-10 00:00: 00 No 1{table t} QD Aspirin 81 81 MG Omeprazole 20 MG Omeprazole 20 MG 01-10 00:00: 00 No QD Omeprazole 20 MG Sucralfate 1 GM Sucralfate 1 GM 01-10 00:00: 00 No 1{table t_on_an _empty_ stomach } BID Sucralfate 1 GM Pantoprazol e Sodium 40 MG Pantoprazol e Sodium 40 MG No Pantoprazo le Sodium 40 MG Atorvastati n Calcium 40 MG Atorvastati n Calcium 40 MG No Atorvastat in Calcium 40 MG Levothyroxi ne Sodium 150 MCG Levothyroxi ne Sodium 150 MCG No Levothyrox ine Sodium 150 MCG Brilinta 90 MG Brilinta 90 MG No Brilinta 90 MG Vital Signs Vital Name Observation Time Observation Value Comments S ource height 2024-01-11 10:00:00 72 [in_i] Commo n [facility] weight 2024-01-11 10:00:00 234.6 [lb_av] Co mmon [facility] temperature 2024-01-11 10:00:00 98.2 [degF] Com mon [facility] bmi 2024-01-11 10:00:00 31.81 kg/m2 Comm on [facility] oximetry 2024-01-11 10:00:00 100 % Commo n [facility] blood pressure systolic 2024-01-11 10:00:00 136 mm[Hg] [facility] blood [facility] diastolic 2024-01-11 10:00:00 92 mm[Hg] [facility] Encounters Start Date/Time End Date/Time Encounter Type Admission Type Attending Clinicians Care Facility Care Department Encounter ID Source 2024-01-11 09:32:00 Outpatient [facility] [id number] [facility] 2024-01-11 00:00:00 2024-01-11 00:00:00 OFFICE VISIT NEW PT LEVEL 4 [facility] [id number] [facility] 2020-11-28 13:32:08 2020-11-28 13:52:08 Laboratory Only Lab, Adc Fam Pob I Mian dodd [facility] [address] ..[id number] [facility] 2020-11-28 13:30:00 2020-11-28 13:30:00 [facility] [id number] [facility] 2020-11-19 18:20:00 2020-11-19 18:20:00 Outpatient R [facility] [id number] [facility] 2020-11-19 17:37:55 2020-11-19 17:57:55 Laboratory Only Lab, Adc Fam Pob I Tamica Decker [facility] Office [facility] ..[id number] [facility] 2020-08-13 10:03:21 2020-08-13 10:23:21 Laboratory Only Lab, Adc Fam Pob I Jean Carrera [facility] .114 [id number] [facility] 2020-08-13 10:00:00 2020-08-13 10:00:00 Outpatient R JEAN CARRERA [facility] [id number] [facility] 2020-04-24 09:17:47 2020-04-24 09:37:47 Laboratory Only Lab, Adc Fam [facility] Nicole [facility] Office [facility] One .114 [id number] 2020-04-24 09:17:47 2020-04-24 09:37:47 Laboratory Only Lab, Adc Fam [facility] Anya Cadena [facility] .114 [id number] [facility] 2020-04-24 09:20:00 2020-04-24 09:20:00 Outpatient R [facility] [id number] [facility] 2020-04-24 00:00:00 2020-04-24 00:00:00 Letter (Out) Doctor Unassigned, [place] [id number] 2020-04-24 00:00:00 2020-04-24 00:00:00 Letter (Out) Doctor Unassigned, [place] [facility] [id number] [id number] [facility]
[2024-01-25] MEDS ORDERED: PANTOPRAZOLE 40 MG INJ ONE (08:55)
[2024-01-25 09:07] LABS: Absolute Basophils 0.1 K/uL (0-0.5); Absolute Eosinophils 0.1 K/uL (0-0.5); Absolute Lymphocytes (CBC) 0.8 K/uL (0.7-4.9); Absolute Monocytes 0.3 K/uL (0.1-1.3); Absolute Neutrophil 3.3 K/uL (1.8-8.0); Basophils % 1.3 % (0-1.3); Eosinophils % 3.3 % (0-4.4); Hematocrit 45.9 % (39.6-49.0); Hemoglobin 15.5 g/dL (13.6-17.9); Lymphocytes % 16.7 % (15.3-44.8); MCH 30.7 pg (27.0-35.0); MCHC 33.7 g/dL (32.0-36.0); MCV 91.1 fL (80-100); MPV 8.1 fL (7.6-11.3); Monocytes % 6.9 % (3.3-12.3); Neutrophils % 71.8 % (41.7-73.7); Nucleated Red Blood Cells % 0.1 % (0-0); Platelets 226 thou/uL (152-406); RBC Red Blood Cell Count 5.04 M/uL (4.33-5.43); Red Cell Distribution Width 13.4 % (12.1-15.2)
[2024-01-25 09:23] LABS: Anion Gap 8.8 mEq/L (5.0-15.0); BUN Blood Urea Nitrogen 11 mg/dL (7-18); Bicarbonate 27 mEq/L (21-32); Glomerular Filtration Rate 62 ml/min (=/>90); Glucose Level 134 mg/dL (74-106); Potassium 3.8 mEq/L (3.5-5.1); Sodium Level 138 mEq/L (136-145)
--- NOTE | 2024-01-25 09:26 | RAD REPORT ---
EXAMINATION: CT ABDOMEN AND PELVIS WITH CONTRAST CLINICAL INDICATION: ABD PAIN TECHNIQUE: CT abdomen and pelvis was performed, after the administration of IV contrast, as per [facility] protocol. Axial, sagittal and coronal reconstructions were obtained. One or more of the following dose reduction techniques were used: Automated exposure control, adjustment of the mA and k V according to patient size, and iterative reconstruction. Unless otherwise specified, incidental findings do not require dedicated imaging follow-up. COMPARISON: 12/29/2023 FINDINGS: LOWER CHEST: Mild linear atelectasis both lung bases. LIVER: Mild fatty liver is present. No focal lesion or biliary dilatation is seen. SPLEEN: Normal size. No focal lesion. PANCREAS: No mass, ductal dilation, or dylon-pancreatic fluid. ADRENALS: Normal; no mass. KIDNEYS: Benign left renal cortical cysts. 5 mm stone mid pole left kidney. No hydronephrosis. GASTROINTESTINAL TRACT: No evidence of free air, significant intra-abdominal free fluid, bowel obstru ction or abscess. APPENDIX: Appendix not visualized, but no inflammatory changes in region of appendix. LYMPH NODES: No lymphadenopathy. MUSCULOSKELETAL: Mild lower lumbar degenerative changes. Small fat-containing bilateral inguinal her nias. ADDITIONAL FINDINGS: Mild nonspecific morales mesentery. IMPRESSION: No acute or concerning abnormalities seen in the abdomen or pelvis. 5 mm stone left kidney without hydronephrosis.
[2024-01-25 09:28] LABS: Troponin High Sensitivity < 3.0 pg/mL (<58.9)
[2024-01-25 09:36] LABS: Albumin 3.8 g/dL (3.4-5.0); Bilirubin Direct 0.2 mg/dL (0-0.2); Bilirubin Indirect, Calculated 0.4 mg/dL (0.2-0.8); Bilirubin Total 0.6 mg/dL (0.2-1.0); Protein, Total 7.8 g/dL (6.4-8.2)
--- NOTE | 2024-01-25 09:54 | RAD REPORT ---
EXAMINATION: ONE VIEW CHEST XR CLINICAL INDICATION: CHEST PAIN TECHNIQUE: Frontal chest projection is submitted. Examination is limited by patient positioning and t echnique. COMPARISON: 12/29/2023 FINDINGS: The lungs are well inflated and clear. The heart is normal in size. No displaced fractures identified . IMPRESSION: No acute intrathoracic abnormalities.
--- NOTE | 2024-01-25 11:00 | ER ---
Nurse's Notes [facility] Name: Carlos Logan Age: 53 yrs Sex: Male : 1970 Arrival Date: 01/25/2024 Time: 08:28 Bed 6 Private MD: Diagnosis: Abdominal pain, unspecified;Chest pain, unspecified Presentation: 01/24 08:43 Chief complaint: Patient states: Chest tightness and L sided abdominal burning since ll1 last night. Lightheaded at times. Coronavirus screen: Client denies travel out of the [place] in the last 14 days. congestion, fatigue, Client presents with at least one sign or symptom that may indicate coronavirus-19. Standard/surgical mask placed on the client. Ebola Screen: Patient denies travel to an Ebola-affected area in the 21 days before illness onset. Initial Sepsis Screen: Does the patient meet any 2 criteria? No. Patient's initial sepsis screen is negative. Does the patient have a suspected source of infection? No. Patient's initial sepsis screen is negative. Risk Assessment: Do you want to hurt yourself or someone else? Patient reports no desire to harm self or others. Onset of symptoms was January 24, 2024. 08:43 Method Of Arrival: Ambulatory ll1 08:43 Acuity: PAULY 3 ll1 Triage Assessment: 08:36 General: Appears in no apparent distress. Behavior is calm, cooperative, appropriate ll1 for age. Pain: Complains of pain in chest Pain currently is 2 out of 10 on a pain scale. Quality of pain is described as pressure. EENT: Reports nasal congestion. Neuro: Reports. Cardiovascular: Reports chest pain, fatigue, lightheadedness. GI: Reports lower abdominal pain, upper abdominal pain, bloating, indigestion. Historical: - Allergies: 08:42 No Known Allergies; ll1 - PMHx: 08:42 Hypothyroidism; ll1 - PSHx: 08:42 heart stent (Hypothyroidism); ll1 - Immunization history:: Adult Immunizations up to date. - Infectious Disease History:: Denies. - Social history:: Smoking status: Reported history of juuling and/or vaping. Patient/guardian denies using tobacco, the patient reports quitting approximately 2 years ago. - Family history:: not pertinent. - Hospitalizations: : The patient was recently seen at [facility]. Screenin:02 [facility] ED Fall Risk Assessment (Adult) History of falling in the last 3 months, ll1 including since admission No falls in past 3 months (0 pts) Confusion or Disorientation No (0 pts) Intoxicated or Sedated No (0 pts) Impaired Gait No (0 pts) Mobility Assist Device Used No (0 pt) Altered Elimination No (0 pt) Score/Fall Risk Level 0 - 2 = Low Risk Maintained a safe environment, Hourly rounding (assess needs \T\ fall precautionary measures) done. Abuse screen: Denies threats or abuse. Nutritional screening: No deficits noted. Tuberculosis screening: No symptoms or risk factors identified. Assessment: 09:00 Reassessment: No changes from previously documented assessment. Patient and/or family ll1 updated on plan of care and expected duration. Pain level reassessed. Patient is alert, oriented x 3, equal unlabored respirations, skin warm/dry/pink. to CT via wheelchair. 09:25 Reassessment: No changes from previously documented assessment. Patient and/or family ll1 updated on plan of care and expected duration. Pain level reassessed. Patient is alert, oriented x 3, equal unlabored respirations, skin warm/dry/pink. 10:21 Reassessment: Dr. Mckinney at . ll1 11:23 Reassessment: No changes from previously documented assessment. Patient and/or family ll1 updated on plan of care and expected duration. Pain level reassessed. Patient is alert, oriented x 3, equal unlabored respirations, skin warm/dry/pink. Patient states feeling better. Pain: Denies pain. 11:24 Pain: Pain does not radiate. Pain began 1 day ago. ll1 Vital Signs: 08:43 BP 171 / 99; Pulse 115; Resp 17; Temp 97.6; Pulse Ox 100% ; Weight 103.87 kg; Height 6 ll1 ft. 0 in. ; Pain 2/10; 08:45 BP 150 / 93; Pulse 79; Resp 17; Pulse Ox 99% on R/A; ll1 10:19 BP 149 / 93; Pulse 93; Resp 16; Pulse Ox 99% ; ko1 11:23 BP 147 / 92; Pulse 98; Resp 16; Pulse Ox 99% on R/A; Pain 0/10; ll1 08:43 Body Mass Index 31.06 (103.87 kg, 182.88 cm) ll1 08:43 Pain Scale: Adult ll1 11:23 Pain Scale: Adult ll1 ED Course: 08:32 Patient arrived in ED. im 08:32 Ernesto Mckinney MD is Attending Physician. rn 08:33 Arm band placed on Patient placed in an exam room, on a stretcher. ll1 08:46 Triage completed. ll1 08:55 Initial lab(s) drawn, by me, sent to lab. Patient maintains SpO2 saturation greater ll1 than 95% on room air. 08:58 Basic Metabolic Panel Sent. ko1 08:58 CBC with Diff Sent. ko1 08:58 Troponin HS Sent. ko1 08:59 Lipase Sent. ko1 08:59 LFT's Sent. ko1 09:01 Inserted saline lock: 20 gauge in left antecubital area, using aseptic technique. ll1 ,using aseptic technique. site labeled with date/time/initials Blood collected. Flushed with 10 mL NS. 09:02 Patient has correct armband on for positive identification. Bed in low position. ll1 Provided Education on: ER procedures and process. Client placed on continuous cardiac and pulse oximetry monitoring. NIBP monitoring applied. learning and development specialist on. 09:12 CT Abd/Pelvis - IV Contrast Only In Process Unspecified. EDMS 09:19 Marlon Capps, ASHLEIGH is Primary Nurse. ll1 09:20 XRAY Chest (1 view) In Process Unspecified. EDMS 10:19 Door closed. Noise minimized. Lights dimmed. ko1 10:19 No provider procedures requiring assistance completed. ko1 10:38 Troponin High Sensitivity Sent. ko1 10:38 Repeat lab(s) drawn. sent to lab. ko1 11:23 IV discontinued, intact, bleeding controlled, No redness/swelling at site. Pressure ll1 dressing applied. Administered Medications: 08:58 Drug: Pantoprazole IVP 40 mg IVP once Route: IVP; Site: left antecubital; ko1 09:13 Follow up: Response: No adverse reaction ko1 Medication: 09:02 VIS not applicable for this client. ll1 Outcome: 11:00 Discharge ordered by . rn 11:24 Discharged to home ambulatory, ll1 11:24 Condition: stable 11:24 Discharge instructions given to patient, family, Instructed on discharge instructions, follow up and referral plans. Demonstrated understanding of instructions, follow-up care, 11:24 Patient left the ED. 1 Signatures: Dispatcher [employer] EDMS Ernesto Mckinney MD MD rn Lewis, Lynsay RN RN ll1 Loreto Barrera RN RN ko1 Saray Martin Corrections: (The following items were deleted from the chart) 08:51 08:43 BP 171 / 99; Pulse 115bpm; Resp 17bpm; Pulse Ox 100%; Pain 2/10, Adult; [place] [id number] 09:15 08:59 BASIC METABOLIC PANEL+C.LAB.BRZ drawn and sent. nita KENNEY
--- NOTE | 2024-01-25 11:00 | EDPHYS ---
Physician Documentation [facility] Name: Carlos Logan Age: 53 yrs Sex: Male : 1970 Arrival Date: 01/25/2024 Time: 08:28 Bed 6 Private MD: ED Physician Ernesto Mckinney HPI: 01/24 09:26 This 53 yrs old Male presents to ER via Ambulatory with complaints of Chest Tightness, rn Abdominal Burn, Indigestion. 09:26 The patient presents with abdominal pain in the periumbilical area. Onset: The rn symptoms/episode began/occurred last night. The symptoms radiate to chest. Associated signs and symptoms: Pertinent positives: constipation, Pertinent negatives: blood in stools, fever, hematuria, shortness of breath, testicular pain, vomiting, vomiting blood. Modifying factors: The symptoms are alleviated by nothing, the symptoms are aggravated by nothing. Severity of pain: At its worst the pain was moderate in the emergency department the pain has resolved. The patient has experienced similar episodes in the past. Patient reports longstanding abdominal pain, for years, has seen GI but never got scoped due to monetary reasons. Reports recently came in for abdominal pain and chest pain, was admitted 1 month ago and had stent to LAD. Patient reports primarily mid to left lower quadrant abdominal pain that started last night or got worse last night. Associated with constipation but no fever or vomiting. No hematuria or urinary symptoms. No trauma. No fever or cough.. Historical: - Allergies: 08:42 No Known Allergies; ll1 - PMHx: 08:42 Hypothyroidism; ll1 - PSHx: 08:42 heart stent (Hypothyroidism); ll1 - Immunization history:: Adult Immunizations up to date. - Infectious Disease History:: Denies. - Social history:: Smoking status: Reported history of juuling and/or vaping. Patient/guardian denies using tobacco, the patient reports quitting approximately 2 years ago. - Family history:: not pertinent. - Hospitalizations: : The patient was recently seen at [facility]. ROS: 09:26 Constitutional: Negative for fever, chills, and weight loss, Cardiovascular: Positive rn for chest pain Respiratory: Negative for shortness of breath, cough, wheezing, and pleuritic chest pain, Abdomen/GI: Positive for abdominal pain and constipation Back: Negative for injury and pain, MS/Extremity: Negative for injury and deformity, Skin: Negative for injury, rash, and discoloration, Neuro: Negative for headache, weakness, numbness, tingling, and seizure, Exam: 09:26 Constitutional: This is a well developed, well nourished patient who is awake, alert, rn and in no acute distress. Ambulatory to room without difficulty or assistance. Drinking out of a [employer] cup with Powerade Cardiovascular: Regular rate and rhythm. No pulse deficits. Respiratory: No increased work of breathing, no retractions or nasal flaring. Abdomen/GI: Soft, no focal tenderness or masses. No distention. MS/ Extremity: Pulses equal, no cyanosis. Neuro: Awake and alert, GCS 15 13:14 ECG was reviewed by the Attending Physician. rn Vital Signs: 08:43 BP 171 / 99; Pulse 115; Resp 17; Temp 97.6; Pulse Ox 100% ; Weight 103.87 kg; Height 6 ll1 ft. 0 in. ; Pain 2/10; 08:45 BP 150 / 93; Pulse 79; Resp 17; Pulse Ox 99% on R/A; ll1 10:19 BP 149 / 93; Pulse 93; Resp 16; Pulse Ox 99% ; ko1 11:23 BP 147 / 92; Pulse 98; Resp 16; Pulse Ox 99% on R/A; Pain 0/10; ll1 08:43 Body Mass Index 31.06 (103.87 kg, 182.88 cm) ll1 08:43 Pain Scale: Adult ll1 11:23 Pain Scale: Adult ll1 MDM: 08:32 Patient medically screened. rn 10:31 ED course: Patient without acute findings and workup. Troponin negative. ECG without rn ischemia. Patient has just started to make dietary modifications to help his acid reflux and abdominal pain 2 weeks ago. May need more time with dietary modifications as well as continuation of his antacids. Takes omeprazole and sucralfate. Will repeat troponin to ensure no cardiac ischemia and then plan on discharge with GI follow-up. Patient states already has an appointment 2 weeks from now.. 10:58 Differential diagnosis: cholecystitis, Cholelithiasis, gastritis, gastroesophageal rn reflux disease, non-specific abd pain, pancreatitis, Peptic Ulcer Disease, Perf. Duodenal Ulcer, Perf. Gastric Ulcer. Data reviewed: vital signs, nurses notes, lab test result(s), radiologic studies, CT scan, and as a result, I will discharge patient. Counseling: I had a detailed discussion with the patient and/or guardian regarding the historical points, exam findings, and any diagnostic results supporting the discharge/admit diagnosis, lab results, radiology results, the need for outpatient follow up, to return to the emergency department if symptoms worsen or persist or if there are any questions or concerns that arise at home. Special discussion: Based on the patient's history, exam, and Dx evaluation, there is no indication for emergent intervention or inpatient Tx. It is understood by the patient/guardian that if the Sx's persist or worsen they need to return immediately for re-evaluation. Based on the patient's Hx, exam, and Dx evaluation, there is no indication for emergent surgery or inpatient Tx. It is understood by the patient/guardian that if the Sx's persist or worsen they need to return immediately for re-evaluation. I discussed with the patient/guardian in detail that at this point there is no indication for admission to the hospital. It is understood, however, that if the symptoms persist or worsen the patient needs to return immediately for re-evaluation. Based on the history and exam findings, there is no indication for further emergent testing or inpatient evaluation. I discussed with the patient/guardian the need to see the server support technician for further evaluation of the symptoms. 01/24 08:47 Order name: Basic Metabolic Panel; Complete Time: 57 ll1 01/24 08:47 Order name: CBC with Diff; Complete Time: 57 ll1 01/24 08:47 Order name: Troponin HS; Complete Time: 57 ll1 01/24 08:50 Order name: Lipase; Complete Time: :57 rn 01/24 08:50 Order name: LFT's; Complete Time: :57 rn 01/24 10:24 Order name: Troponin High Sensitivity; Complete Time: :58 rn 01/24 08:47 Order name: XRAY Chest (1 view); Complete Time: :57 ll1 01/24 08:50 Order name: CT Abd/Pelvis - IV Contrast Only; Complete Time: :57 rn 01/24 08:47 Order name: Cardiac monitoring; Complete Time: 08:47 ll1 01/24 08:47 Order name: EKG - Nurse/Tech; Complete Time: 08:47 ll1 10/09 08:47 Order name: IV Saline Lock; Complete Time: 08:58 ll1 01/24 08:47 Order name: Labs collected and sent; Complete Time: 08:58 ll1 01/24 08:47 Order name: O2 Per Protocol; Complete Time: 08:47 ll1 01/24 08:47 Order name: O2 Sat Monitoring; Complete Time: 08:47 ll1 EC:14 Rate is 114 beats/min. Rhythm is regular. QRS [place] is Normal. OK interval is normal. rn QRS interval is normal. QT interval is normal. No Q waves. T waves are Normal. No ST changes noted. Clinical impression: Sinus tachycardia. Interpreted by me. Reviewed by me. Administered Medications: 08:58 Drug: Pantoprazole IVP 40 mg IVP once Route: IVP; Site: left antecubital; ko1 09:13 Follow up: Response: No adverse reaction ko1 Disposition Summary: 01/25/24 11:00 Discharge Ordered Notes: Location: Home rn Problem: an ongoing problem rn Symptoms: have improved rn Condition: Stable rn Diagnosis - Abdominal pain, unspecified rn - Chest pain, unspecified rn Followup: rn - With: Private Physician - When: As needed - Reason: Recheck today's complaints, Re-evaluation by your physician Discharge Instructions: - Discharge Summary Sheet rn - Abdominal Pain, Adult rn - Nonspecific Chest Pain, Adult rn - Food Choices for Gastroesophageal Reflux Disease, Adult rn - Gastroesophageal Reflux Disease, Adult rn - Pain Without a Known Cause rn Forms: - Medication Reconciliation Form rn - Antibiotic [place] se[place] - Prescription Opioid Use rn - Patient Portal Instructions rn - Leadership Thank You Letter rn - Work release form ll1 Signatures: Dispatcher [employer] EDErnesto Santiago MD MD rn Lewis, Lynsay, RN RN ll1 Loreto Barrera RN RN ko1 Corrections: (The following items were deleted from the chart) 08:47 08:47 BASIC METABOLIC PANEL+C.LAB.BRZ ordered. EDMS EDMS 08:47 08:47 CBC+H.LAB.BRZ ordered. EDMS EDMS 08:47 08:47 Troponin High Sensitivity+C.LAB.BRZ ordered. EDMS EDMS 08:48 08:48 Chest Single View+RAD.RAD.BRZ ordered. EDMS EDMS 08:51 08:51 LIPASE+C.LAB.BRZ ordered. EDMS EDMS 08:51 08:51 HEPATIC FUNCTION+C.LAB.BRZ ordered. EDMS EDMS 08:51 08:51 Abdomen Pelvis W Con+CT.RAD.BRZ ordered. EDMS EDMS 09:15 08:51 BASIC METABOLIC PANEL+C.LAB.BRZ ordered. EDMS EDMS 10:25 10:25 Troponin High Sensitivity+C.LAB.BRZ ordered. EDMS EDMS
[2024-01-25 11:39] VITALS: TEMP 97.6
[2024-01-25 11:42] VITALS: O2SAT 99
[2024-01-25 11:45] VITALS: BP 147/92
--- NOTE | 2024-01-26 16:56 | EKG ---
Test Date: 2024-01-25 Test Time: 08:40:30 Environmental Health And Safety Intern: SCAR MEASUREMENT RESULTS: Intervals: Rate: 114 TN: 164 QRSD: 92 QT: 328 QTc: 452 [place]: P: 76 TN: 164 QRS: 61 T: 67 INTERPRETIVE STATEMENTS: Sinus tachycardia Otherwise normal ECG Compared to ECG 12/29/2023 14:04:20 Sinus rhythm no longer present Electronically Signed On 01-26-24 16:51:10 CDT by Yuri Mcnally
== END 2024-01-25 11:24 | disposition home or self-care (01) ==
LOC: ER 08:28
DX: R10.33 Periumbilical pain (principal); R07.9 Chest pain, unspecified; E03.9 Hypothyroidism, unspecified
CPT/HCPCS: 93005; 85025; 80048; 36415; 80076; 84484 ×2; 83690; 74177; 71045; Q9967; J2470

== ENCOUNTER 2025-02-01 20:23 | Emergency (ER) | payer OTHER ==
--- OUTSIDE RECORDS SUMMARY | 2025-02-01 20:25 | XMS REPORT | Continuity of Care Document ---
Author Name Unknown Address [address] [facility] [address] [place] [address] Organization [facility] [place] Address [address] [facility]. [address] [place] [address] Care Team Providers Care Medical Biller Name Role Phone Yoan Childs Attending Clinician Unavailable Lab, Adc Fam Pob I Attending Clinician Unavailab Sherlyn Frias Attending Clinician + SHERLYN FUENTES Attending Clinician UnaTamica Garduno Attending Clinician [phone] Maria Guadalupe eSbastian Attending Clinician [phone] MARIA GUADALUPE CARRERA Attending Clinician Unavailable Anya López Attending Clinician [phone] Doctor Unassigned, [place] Attending Clinician U navailable Payers Payer Name Policy Type Policy Number Effective Date Expirati on Date Source Problems Condition Name Condition Details Condition Category Status Onset Date Resolution Date Last Treatment Date Treating Clinician Comments Source [id number] Essential hypertensi on Problem [facility] [id number] GERD without esophagiti s Problem [facility] [id number] Acquired hypothyroi dism Problem [facility] [id number] Decreased hearing of both ears Problem [facility] [id number] Coronary artery disease of [place] artery of [place] heart with stable angina pectoris Problem [facility] Allergies, Adverse Reactions, Alerts Allergy Name Allergy Type Status Severity Reaction(s) Onset Date Inactive Date Treating Clinician Comments Source NO KNOWN ALLERGIE S Drug Class Active [facility] Social History Social Habit Start Date Stop Date Quantity Comments Source Sex Assigned At [facility] Exposure to SARS-CoV-2 (event) Not sure [facility] History of Tobacco Use 1990-04-17 00:00:00 2022-04-17 00:00:00 [facility] Smoking Status Start Date Stop Date Source Unknown if ever smoked [facility] Former Smoker 2024-06-22 00:00:00 2024-06-22 00:00:00 [facility] Never Smoker [facility] Medications Ordered Medication Name Filled Medication Name Start Date Stop Date Current Medication? Ordering Clinician Indication Dosage Frequency Signature (SIG) Comments Components Source Meclizine HCl 12.5 MG Meclizine HCl 12.5 MG 2 00:00: 00 No 1{table t_as_ne eded} BID Meclizine HCl 12.5 MG Rosuvastati n Calcium 10 MG Rosuvastati n Calcium 10 MG 05-23 00:00: 00 No 1{table t} QD Rosuvastat in Calcium 10 MG Lisinopril 10 MG Lisinopril 10 MG 2023-04 0 00:00: 00 No 1{table t} QD Lisinopril 10 MG Aspirin 81 81 MG Aspirin 81 81 [...] MG No Pantoprazo le Sodium 40 MG Levothyroxi ne Sodium 150 MCG Levothyroxi ne Sodium 150 MCG No QD Levothyrox ine Sodium 150 MCG Brilinta 90 MG Brilinta 90 MG No Brilinta 90 MG Vital Signs Vital Name Observation Time Observation Value Comments Keerthi buchanan height 2024-06-22 11:15:00 72 [in_i] Commo n [facility] weight 2024-06-22 11:15:00 231.6 [lb_av] Co [facility] temperature 2024-06-22 11:15:00 98.2 [degF] Com [facility] bmi 2024-06-22 11:15:00 31.41 kg/m2 Comm on [facility] oximetry 2024-06-22 11:15:00 98 % Commo n [facility] blood pressure systolic 2024-06-22 11:15:00 125 mm[Hg] [facility] blood pressure diastolic 2024-06-22 11:15:00 72 mm[Hg] Common [facility] height 2024-05-23 10:45:00 72 [in_i] Commo n [facility] weight 2024-05-23 10:45:00 232.4 [lb_av] Co [facility] temperature 2024-05-23 10:45:00 97.5 [degF] Com [facility] bmi 2024-05-23 10:45:00 31.52 kg/m2 Comm on [facility] oximetry 2024-05-23 10:45:00 100 % Commo n [facility] blood pressure systolic 2024-05-23 10:45:00 130 mm[Hg] [facility] blood pressure diastolic 2024-05-23 10:45:00 65 mm[Hg] Common [facility] height 2024-02-09 14:40:00 72 [in_i] Commo n [facility] weight 2024-02-09 14:40:00 230.4 [lb_av] Co [facility] temperature 2024-02-09 14:40:00 98.4 [degF] Com mon [facility] bmi 2024-02-09 14:40:00 31.24 kg/m2 Comm on [facility] oximetry 2024-02-09 14:40:00 97 % Commo n [facility] blood pressure systolic 2024-02-09 14:40:00 132 mm[Hg] [facility] blood pressure diastolic 2024-02-09 14:40:00 74 mm[Hg] [facility] height 2024-01-11 10:00:00 72 [in_i] Commo n [facility] weight 2024-01-11 10:00:00 234.6 [lb_av] Co [facility] temperature 2024-01-11 10:00:00 98.2 [degF] Com mon [facility] bmi 2024-01-11 10:00:00 31.81 kg/m2 Comm on [facility] oximetry 2024-01-11 10:00:00 100 % Commo n [facility] blood pressure systolic 2024-01-11 10:00:00 136 mm[Hg] [facility] blood pressure diastolic 2024-01-11 10:00:00 92 mm[Hg] [facility] Encounters Start Date/Time End Date/Time Encounter Type Admission Type Attending Clinicians Care Facility Care Department Encounter ID Source 2024-06-20 08:07:01 Outpatient Yoan Childs [facility] [id number] [facility] 2024-05-22 07:38:00 [facility] [id number] [facility] 2024-05-09 13:54:00 [facility] [id number] [facility] 2024-02-08 08:25:01 Outpatient Yoan Childs [facility] [id number] [facility] 2024-01-11 09:32:00 Outpatient Yoan Childs [facility] [id number] [facility] 2024-11-12 00:00:00 2024-11-12 00:00:00 (TEL) [facility] [id number] [facility] 2024-06-28 00:00:00 2024-06-28 00:00:00 (TEL) [facility] [id number] [facility] 2024-06-22 00:00:00 2024-06-22 00:00:00 OFFICE VISIT ESTAB PT LEVEL 4 [facility] [id number] [facility] 2024-05-28 00:00:00 2024-05-28 00:00:00 (TEL) [facility] [id number] [facility] 2024-05-23 00:00:00 2024-05-23 00:00:00 (WELLNESS) Wellness Visit [facility] [id number] [facility] 2024-05-21 00:00:00 2024-05-21 00:00:00 (TEL) [facility] [id number] [facility] 2024-04-16 00:00:00 2024-04-16 00:00:00 (TEL) [facility] [id number] [facility] 2024-02-09 00:00:00 2024-02-09 00:00:00 OFFICE VISIT ESTAB PT LEVEL 4 [facility] [id number] [facility] 2024-02-08 00:00:00 2024-02-08 00:00:00 (TEL) [facility] [id number] [facility] 2024-01-11 00:00:00 2024-01-11 00:00:00 OFFICE VISIT NEW PT LEVEL 4 [facility] [id number] [facility] 2020-11-28 13:32:08 2020-11-28 13:52:08 Laboratory Only Lab, [facility] [id number] [id number] [facility] 2020-11-28 13:30:00 2020-11-28 13:30:00 Outpatient R LEONARDO Dodd [facility] [id number] [facility] 2020-11-19 18:20:00 2020-11-19 18:20:00 Outpatient R [facility] [id number] [facility] 2020-11-19 17:37:55 2020-11-19 17:57:55 Laboratory Only Lab, [facility] Deepak Pob Nicole Jeronimo Tamica [facility] Office [facility] One .114 [id number] [facility] 2020-08-13 10:03:21 2020-08-13 10:23:21 Laboratory Only Lab, [facility] Deepak Burtonb Nicole [facility]uddy [facility] 1.114 [id number] [facility] 2020-08-13 10:00:00 2020-08-13 10:00:00 [facility] [id number] 2020-04-24 09:17:47 2020-04-24 09:37:47 Laboratory Only Lab, [facility] Micehalb Nicole [facility] Office [facility] One 1.114 [id number] 2020-04-24 09:17:47 2020-04-24 09:37:47 Laboratory Only Lab, Adc Fam Michealb Anya Murdock [facility] .[id number] [facility] 2020-04-24 09:20:00 2020-04-24 09:20:00 Outpatient R [facility] [id number] [facility] 2020-04-24 00:00:00 2020-04-24 00:00:00 Letter (Out) Doctor Unassigned, [place] [facility] .[id number] 2020-04-24 00:00:00 2020-04-24 00:00:00 Letter (Out) Doctor Unassigned, [place] [facility] 1..114 [id number] [facility]
[2025-02-01] MEDS ORDERED: ONDANSETRON 4 MG/2 ML VIAL ONE ×2 (20:48→21:06)
[2025-02-01] MEDS ORDERED: MORPHINE 4 MG/ML SYR ONE (20:48)
[2025-02-01 21:23] LABS: Absolute Lymphocytes (CBC) 2.1 K/uL (0.7-4.9); Hematocrit 45.2 % (39.6-49.0); Hemoglobin 15.2 g/dL (13.6-17.9); MCH 29.2 pg (27.0-35.0); MCHC 33.6 g/dL (32.0-36.0); MCV 87.1 fL (80-100); MPV 8.3 fL (7.6-11.3); Nucleated RBC Absolute Count 0.0 (0-0); Nucleated Red Blood Cells % 0.0 % (0-0); RBC Red Blood Cell Count 5.19 M/uL (4.33-5.43); White Blood Count 7.50 thou/uL (4.3-10.9)
--- NOTE | 2025-02-01 21:40 | RAD REPORT ---
EXAMINATION: ONE VIEW CHEST XR CLINICAL INDICATION: Male, 54 years old.,DYSPNEA TECHNIQUE: Frontal chest projection is submitted. Examination is limited by patient positioning and t echnique. COMPARISON: 01/25/2024 FINDINGS: The lungs are well inflated and clear. No pneumothorax or sizable effusion. The heart is normal in s ize. Mediastinal contours are unremarkable. IMPRESSION: No acute intrathoracic abnormalities.
[2025-02-01 21:53] LABS: ALT/SGPT 50 U/L (16-61); Albumin 3.7 g/dL (3.4-5.0); Albumin/Globulin Ratio 0.9 (1.1-1.8); Alkaline Phosphatase 68 U/L (45-117); Anion Gap 8.1 mEq/L (5.0-15.0); BUN Blood Urea Nitrogen 13 mg/dL (7-18); Globulin 3.9 g/dL (2.3-3.5); Glucose Level 122 mg/dL (74-106); Lipase 35 U/L (13-75); NT PRO-BNP 22 pg/mL (<125)
[2025-02-01 22:09] LABS: AST/SGOT 26 U/L (15-37); Bilirubin Indirect, Calculated 0.1 mg/dL (0.2-0.8); Magnesium 2.3 mg/dL (1.6-2.4); Potassium 4.1 mEq/L (3.5-5.1); Troponin High Sensitivity < 3.0 pg/mL (<58.9)
--- NOTE | 2025-02-01 22:58 | ER ---
[facility] Name: Carlos Logan Age: 54 yrs Sex: Male : 1970 Arrival Date: 02/01/2025 Time: 20:23 Bed 8 Private MD: Diagnosis: Chest pain, unspecified;Dyspnea Presentation: 02/01 20:43 Chief complaint: Patient states: midsternal CP and SOB that both worsen with exertion. me1 Pain is 2/10 at this time. "squeezing" "tight". Started about a week ago. Coronavirus screen: Vaccine status: Patient reports being unvaccinated. Ebola Screen: No symptoms or risks identified at this time. Initial Sepsis Screen: Does the patient meet any 2 criteria? HR > 90 bpm. Does the patient have a suspected source of infection? No. Patient's initial sepsis screen is negative. Risk Assessment: Do you want to hurt yourself or someone else? Patient reports no desire to harm self or others. Onset of symptoms is unknown. 20:43 Method Of Arrival: Ambulatory me1 20:43 Acuity: PAULY 3 me1 Historical: - Allergies: 20:46 No Known Allergies; me1 - PMHx: 20:46 Hypothyroidism; Myocardial infarction; Gastroesophageal reflux disease; Hypertensive me1 disorder; - PSHx: 20:46 heart stent (yr); me1 - Immunization history:: Adult Immunizations up to date. - Infectious Disease History:: Denies. - Social history:: Smoking status: Reported history of juuling and/or vaping. Screenin:35 [facility] ED Fall Risk Assessment (Adult) History of falling in the last 3 months, vc1 including since admission No falls in past 3 months (0 pts) Confusion or Disorientation No (0 pts) Intoxicated or Sedated No (0 pts) Impaired Gait No (0 pts) Mobility Assist Device Used No (0 pt) Altered Elimination No (0 pt) Score/Fall Risk Level 0 - 2 = Low Risk Oriented to surroundings, Maintained a safe environment, Educated pt \\T\\ family on fall prevention, incl call for assistance when getting out of bed, Assessed \\T\\ reinforced patient's understanding of fall precautions, Hourly rounding (assess needs \\T\\ fall precautionary measures) done. Abuse screen: Denies threats or abuse. Nutritional screening: No deficits noted. Tuberculosis screening: No symptoms or risk factors identified. Assessment: 21:38 General: Appears in no apparent distress. uncomfortable, Behavior is calm, cooperative, vc1 appropriate for age. Pain: Complains of pain in chest Pain does not radiate. Neuro: Level of Consciousness is awake, alert, obeys commands, Oriented to person, place, time, situation, Appropriate for age. Cardiovascular: Capillary refill < 3 seconds Patient's skin is warm and dry. Rhythm is sinus tachycardia. Respiratory: Reports shortness of breath on exertion Airway is patent Respiratory effort is even, unlabored, Respiratory pattern is regular, symmetrical, Breath sounds are clear. GI: No deficits noted. No signs and/or symptoms were reported involving the gastrointestinal system. : No deficits noted. No signs and/or symptoms were reported regarding the genitourinary system. EENT: No deficits noted. No signs and/or symptoms were reported regarding the EENT system. Derm: Skin is intact, is healthy with good turgor, Skin is dry, Skin is normal, Skin temperature is warm. Musculoskeletal: Circulation, motion, and sensation intact. Range of motion: intact in all extremities. 22:34 Reassessment: Patient appears in no apparent distress at this time. Patient and/or vc1 family updated on plan of care and expected duration. Pain level reassessed. Patient is alert, oriented x 3, equal unlabored respirations, skin warm/dry/pink. Patient denies pain at this time. Patient states feeling better. Patient states symptoms have improved. 23:13 Reassessment: Patient appears in no apparent distress at this time. No changes from vc1 previously documented assessment. Patient and/or family updated on plan of care and expected duration. Pain level reassessed. Patient is alert, oriented x 3, equal unlabored respirations, skin warm/dry/pink. Vital Signs: 20:43 BP 148 / 91; Pulse 107; Resp 18; Temp 98.2; Pulse Ox 97% ; Weight 108 kg; Height 6 ft. me1 0 in. ; Pain 2/10; 21:36 BP 138 / 87; Pulse 95; Resp 18; Pulse Ox 97% ; vc1 22:30 BP 118 / 84; Pulse 89; Resp 16; Pulse Ox 94% ; vc1 23:12 BP 108 / 73; Pulse 90; Resp 16; Pulse Ox 95% ; vc1 20:43 Body Mass Index 32.29 (108.00 kg, 182.88 cm) me1 20:43 Pain Scale: Adult me1 ED Course: 20:26 Patient arrived in ED. gm2 20:45 Yuri Soto DO is Attending Physician. tt7 20:46 Triage completed. me1 20:46 Arm band placed on Patient placed in an exam room. me1 20:50 Missed attempt(s): 20 gauge in left antecubital area. Bleeding controlled, band aid vc1 applied, catheter tip intact. 20:57 Missed attempt(s): 22 gauge in right forearm. Bleeding controlled, band aid applied, vc1 catheter tip intact. 21:05 XRAY Chest (1 view) In Process Unspecified. EDMS 21:15 Inserted saline lock: 20 gauge in left antecubital area, using aseptic technique. Blood rv1 collected. Flushed with 10 mL NS. 21:15 D-Dimer Sent. rv1 21:15 Lipase Sent. rv1 21:15 Basic Metabolic Panel Sent. rv1 21:15 CBC with Diff Sent. rv1 21:15 LFT's Sent. rv1 21:15 Magnesium Sent. rv1 21:16 NT PRO-BNP Sent. rv1 21:16 Troponin HS Sent. rv1 21:36 Lizbeth Gutierrez, RN is Primary Nurse. vc1 21:37 Patient has correct armband on for positive identification. Bed in low position. Call vc1 light in reach. Provided Education on: plan of care. threat monitoring analyst on. Pulse ox on. NIBP on. 22:57 Yuri Mcnally MD is Referral Physician. tt7 23:20 No provider procedures requiring assistance completed. IV discontinued, intact, vc1 bleeding controlled, No redness/swelling at site. Pressure dressing applied. Administered Medications: 21:36 Drug: morphine IVP or IV 4 mg IVP once over 4 mins Route: IVP; Infused Over: 4 mins; vc1 Site: left antecubital; 22:33 Follow up: Response: No adverse reaction; Marked relief of symptoms vc1 21:36 Drug: Ondansetron IVP 8 mg IVP once; over 2 minutes Route: IVP; Site: left antecubital; vc1 22:33 Follow up: Response: No adverse reaction; Marked relief of symptoms vc1 Medication: 21:38 VIS not applicable for this client. vc1 Outcome: 22:58 Discharge ordered by . tt7 23:20 Discharged to home ambulatory, with significant other, vc1 23:20 Condition: stable 23:20 Discharge instructions given to patient, Instructed on discharge instructions, follow up and referral plans. Demonstrated understanding of instructions, follow-up care, 23:20 Patient left the ED. vc1 Signatures: Dispatcher [employer] Lizbeth Sood RN RN vc1 Radha Gonzalez rv1 Chelsea Barkley RN RN vt1 Breanna Myers 2 Yuri Soto, DO tt7
--- NOTE | 2025-02-01 22:58 | EDPHYS ---
Physician Documentation [facility] Name: Carlos Logan Age: 54 yrs Sex: Male : 1970 Arrival Date: 02/01/2025 Time: 20:23 Bed 8 Private MD: ED Physician Yuri Soto HPI: 02/02 07:36 This 54 yrs old Male presents to ER via Ambulatory with complaints of Shortness Of tt7 Breath. 07:36 Patient reports 2 days of some shortness of breath, mostly dyspnea on exertion as he tt7 has been increasing his activity at work lately, also has been having some epigastric abdominal pain that is mild in character and associated with some nausea, no vomiting, denies fever, past medical history includes pancreatitis, hyperlipidemia, hypertension, was diagnosed with a pleural effusion in the past so wanted to come in to see if his shortness of breath could be related to a pleural effusion and if his pain could be related to pancreatitis. Historical: - Allergies: 02/01 20:46 No Known Allergies; me1 - PMHx: 20:46 Hypothyroidism; Myocardial infarction; Gastroesophageal reflux disease; Hypertensive me1 disorder; - PSHx: 20:46 heart stent (yr); me1 - Immunization history:: Adult Immunizations up to date. - Infectious Disease History:: Denies. - Social history:: Smoking status: Reported history of juuling and/or vaping. ROS: 02/02 07:35 Constitutional: negative for fever. Cardiovascular: negative for chest pain. tt7 Respiratory: Positive for shortness of breath. MS/Extremity: negative for injury and deformity. Skin: negative for rash. Neuro: negative for focal weakness. Abdomen/GI: Positive for abdominal pain, nausea, Negative for vomiting, Exam: 07:36 Constitutional: vital signs reviewed, well appearing. Head/Face: normocephalic, tt7 atraumatic. Eyes: no conjunctival injection, anicteric sclerae. ENT: mucus membranes moist. Neck: trachea midline, no JVD, no meningismus. Chest/axilla: normal chest wall appearance and motion, nontender, no crepitus. Cardiovascular: regular rate and rhythm, no murmurs, no rubs, no lower extremity edema. Respiratory: normal respiratory effort, no accessory muscle use, lungs CTAB. Abdomen/GI: soft, nondistended, nontender, no guarding or rebound, negative Morley's sign, no McBurney point tenderness. Back: normal ROM. Skin: warm, dry, intact, normal turgor, normal color, no rash. MS/ Extremity: normal ROM of extremities, no gross deformities. Neuro: alert and oriented with appropriate mental status, normal speech, follows commands, no focal neurologic deficits. Psych: appropriate mood and affect. Vital Signs: 02/01 20:43 BP 148 / 91; Pulse 107; Resp 18; Temp 98.2; Pulse Ox 97% ; Weight 108 kg; Height 6 ft. me1 0 in. ; Pain 2/10; 21:36 BP 138 / 87; Pulse 95; Resp 18; Pulse Ox 97% ; vc1 22:30 BP 118 / 84; Pulse 89; Resp 16; Pulse Ox 94% ; vc1 23:12 BP 108 / 73; Pulse 90; Resp 16; Pulse Ox 95% ; vc1 20:43 Body Mass Index 32.29 (108.00 kg, 182.88 cm) me1 20:43 Pain Scale: Adult me1 MDM: 20:29 Medical Screening Exam initiated tt7 20:46 Differential diagnosis: Anxiety Reaction Myocardial Infarction pneumonia, Pneumothorax tt7 pulmonary edema, Pulmonary Embolism Pleural effusion, pancreatitis. Data reviewed: vital signs, nurses notes, old medical records, lab test result(s), EKG, radiologic studies. 20:52 ED course: I independently interpreted the patient's EKG performed on 02/01/2025 at tt7 2040. On my interpretation, EKG demonstrates sinus tachycardia, ventricular rate 105 bpm, normal axis, normal QRS interval, normal ST segments, no STEMI. 02/02 07:37 ED course: Patient well-appearing, stable vital signs, normal physical exam, standard tt7 cardiac evaluation ordered, workup reassuring, troponin negative, no evidence of pleural effusion on chest x-ray, chest x-ray normal, I independently interpreted the patient's chest x-ray. On my interpretation, chest x-ray demonstrates no radiographic evidence of acute cardiopulmonary disease, patient treated with parenteral opioid and IV antiemetic, pulmonary embolism ruled out with D-dimer, on reassessment patient feels significantly improved, after completion of the patient's emergency department evaluation, I do not suspect a life-threatening or disabling process. Patient is medically stable and not in need of emergent medical intervention. I had a detailed discussion with the patient regarding the historical points, exam findings, emergency department evaluation, diagnostic results, and the discharge diagnosis. I instructed the patient on outpatient management of their condition. I discussed the need for outpatient follow-up with a primary care physician. I informed the patient on return precautions, including the need to return to the ED if symptoms do not improve, worsen, or if there are any questions or concerns that arise at home. The patient was discharged in stable condition. 02/01 20:30 Order name: Basic Metabolic Panel; Complete Time: 22:25 02/01 20:30 Order name: CBC with Diff; Complete Time: :25 02/01 20:30 Order name: LFT's; Complete Time: :02/01 20:30 Order name: Magnesium; Complete Time: :02/01 20:30 Order name: NT PRO-BNP; Complete Time: :25 02/01 20:30 Order name: Troponin HS; Complete Time: :02/01 20:30 Order name: Lipase; Complete Time: :02/01 20:47 Order name: D-Dimer; Complete Time: 22:30 02/01 20:30 Order name: XRAY Chest (1 view); Complete Time: :25 02/01 20:30 Order name: Cardiac monitoring; Complete Time: 21:36 02/01 20:30 Order name: EKG - Nurse/Tech; Complete Time: 21:05 02/01 20:30 Order name: IV Saline Lock; Complete Time: 21:02/01 20:30 Order name: Labs collected and sent; Complete Time: 21:02/01 20:30 Order name: O2 Per Protocol; Complete Time: 21:02/01 20:30 Order name: O2 Sat Monitoring; Complete Time: 21: Administered Medications: 02/01 21:36 Drug: morphine IVP or IV 4 mg IVP once over 4 mins Route: IVP; Infused Over: 4 mins; vc1 Site: left antecubital; 22:33 Follow up: Response: No adverse reaction; Marked relief of symptoms vc1 21:36 Drug: Ondansetron IVP 8 mg IVP once; over 2 minutes Route: IVP; Site: left antecubital; vc1 22:33 Follow up: Response: No adverse reaction; Marked relief of symptoms vc1 Disposition: 02/02 07:38 Co-signature as Attending Physician, Yuri Soto DO. tt7 Disposition Summary: 02/01/25 22:58 Discharge Ordered Notes: Location: Home tt7 Problem: new tt7 Symptoms: have improved tt7 Condition: Stable tt7 Diagnosis - Chest pain, unspecified tt7 - Dyspnea tt7 Followup: tt7 - With: Emergency Department - When: As needed - Reason: Followup: tt7 - With: Yuri Mcnally MD - When: 1 - 2 days - Reason: Recheck today's complaints, Continuance of care Discharge Instructions: - Discharge Summary Sheet tt7 - Exercise Stress Test, [id number] tt7 - Nonspecific Chest Pain, Adult, [id number] tt7 Forms: - Work release form vc1 - Medication Reconciliation Form tt7 - Antibiotic Education tt7 - Prescription Opioid Use tt7 - Patient Portal Instructions tt7 - Leadership Thank You Letter tt7 Signatures: Dispatcher [employer] EDLizbeth Torres RN RN vc1 Chelsea Barkley RN RN me1 Yuri Soto DO DO tt7 Corrections: (The following items were deleted from the chart) 02/01 20:30 20:30 BASIC METABOLIC PANEL+C.LAB.BRZ ordered. EDMS EDMS 20:30 20:30 CBC+H.LAB.BRZ ordered. EDMS EDMS 20:30 20:30 HEPATIC FUNCTION+C.LAB.BRZ ordered. EDMS EDMS 20:30 20:30 MAGNESIUM+C.LAB.BRZ ordered. EDMS EDMS 20:30 20:30 PROBNP+C.LAB.BRZ ordered. EDMS EDMS 20:30 20:30 Troponin High Sensitivity+C.LAB.BRZ ordered. EDMS EDMS 20:30 20:30 LIPASE+C.LAB.BRZ ordered. EDMS EDMS 20:30 20:30 Chest Single View+RAD.RAD.BRZ ordered. EDMS EDMS
[2025-02-02 05:47] VITALS: TEMP 98.2
[2025-02-02 05:51] VITALS: BP 108/73; O2SAT 95
== END 2025-02-01 23:20 | disposition home or self-care (01) ==
LOC: ER 20:23
DX: R07.9 Chest pain, unspecified (principal); R06.00 Dyspnea, unspecified; R10.13 Epigastric pain; I10 Essential (primary) hypertension; I25.2 Old myocardial infarction; Z95.818 Presence of other cardiac implants and grafts
CPT/HCPCS: 93005 ×2; 85025; 80048; 36415; 83735; 85379; 80076; 84484; 83690; 83880; 71045; 96375; 96374; 99285; J2405 ×2